=== PATIENT | male | born 1965 | race Caucasian/White ===

== ENCOUNTER 2023-06-30 09:04 | Outpatient (OUT) | payer OTHER, SELFPAY ==
--- NOTE | 2023-06-30 08:45 | NM_ITS ---
Patient Name: KAHLIL MOODY MR#: [id number] : 1965 Exam Date: 06/30/2023 Ordering Doctor: DR Nemesio Angelo . RADIOLOGY REPORT PROCEDURE: NM SKYLER PERF SPECT REST STR COMPARISON: None. INDICATIONS: CHEST PAIN TECHNIQUE: Exam Description: Rest/Stress two day protocol gated SPECT Rest Imagin.1 mCi Tc-99m Cardiolite IV on 06-30-2023 Stress Imaging 25.3 mCi Tc-99m Cardiolite IV on 07-30-2023 Exercise Protocol: 0.4 mg Lexiscan given IV Heart Rate (bpm): Rest: 72 Max: 153 PMHR: 93 Blood Pressure: Rest: 140/98 Max: 198/98 Exercise Time: Minutes: 8 Seconds: 56 Stage Reached: Stage: 3 Mets 10.1 Symptoms: Rest and peak stress ECG findings were normal and the exercise portion of the study was normal per attending physician Dr. Burgos . For more details please see separate cardiac stress test report. FINDINGS: QUALITY OF STUDY: Excellent. PERFUSION DEFECT: None. LOCATION: N/A SIZE: N/A. SEVERITY: N/A. TYPE: N/A. WALL MOTION: Normal. LV SIZE: Normal. 119 mL. TID / TCD: None; 0.9 LVEF: Normal. Calculated EF 64%. SUMMARY: Myocardial perfusion imaging study is NORMAL. CONCLUSION: 1. Normal nuclear medicine myocardial perfusion scan. Dictated by: Aki Barba M.D. on 07/30/2023 at 14:39 Approved by: Aki Barba M.D. on 07/30/2023 at 14:41
== END 2023-06-30 09:05 | disposition home or self-care (01) ==
LOC: NM 09:04
PROVIDERS: PCP Family Medicine; Visit Provider Family Medicine
DX: I11.0 Hypertensive heart disease with heart failure (principal); I50.30 Unspecified diastolic (congestive) heart failure; R07.9 Chest pain, unspecified
CPT/HCPCS: 36415; 71046; 78452; 80053; 83880; 85025; A9500

== ENCOUNTER 2023-06-30 09:14 | Outpatient (OUT) | payer OTHER, SELFPAY ==
[2023-06-30 09:36] LABS: Basophils Absolute Auto 0.1 10^3/uL (0.0-0.1); Basophils Percent Auto 0.9 % (0.2-2.0); Eosinophils Absolute Auto 0.2 10^3/uL (0.0-0.7); Eosinophils Percent Auto 2.6 % (0.9-7.0); Hematocrit 44.2 % (42.0-54.0); Hemoglobin 14.5 g/dL (14.0-18.0); Immature Granulocytes Abs Auto 0.02 10^3/uL (0.00-0.03); Immature Granulocytes Pct Auto 0.3 % (0.0-0.5); Lymphocytes Absolute Auto 1.8 10^3/uL (1.2-3.8); Lymphocytes Percent Auto 31.3 % (20.5-60.0); Mean Corpuscular HGB Conc 32.8 g/dL (29.9-35.2); Mean Corpuscular Hemoglobin 29.8 pg (25.9-34.0); Mean Corpuscular Volume 90.9 fL (80.0-94.0); Mean Platelet Volume 10.9 fL (9.5-13.5); Monocytes Absolute Auto 0.5 10^3/uL (0.3-0.8); Monocytes Percent Auto 7.7 % (1.7-12.0); Neutrophils Absolute Auto 3.4 10^3/uL (1.4-6.5); Neutrophils Percent Auto 57.2 % (43.0-75.0); Platelet Count 146 10^3/uL (150-450); Red Blood Count 4.86 10^6/uL (4.70-6.10); Red Cell Distribution Width 13.2 % (11.0-15.0); White Blood Count 5.9 10^3/uL (4.0-11.0)
--- NOTE | 2023-06-30 09:36 | XR_ITS ---
The [address] [address] Patient Name: KAHLIL MOODY MRN: [id number] date: 1965 Sex: M Assigned Patient Location: LAB Current Patient Location: LAB Accession/Order Number: [id number] Exam Date: 06/30/2023 09:40 Report Date: 06/30/2023 09:56 At the request of: JOE FOOTE Procedure: XR chest 2V EXAM: XR chest 2V HISTORY: Chest pain R07.9 COMPARISON: None. TECHNIQUE: PA and lateral views of the chest. FINDINGS: The cardiomediastinal silhouette is normal. No focal consolidation is identified. There is no pneumothorax. No pleural effusion is noted. The osseous structures are intact. XR/XR chest 2V IMPRESSION: No acute cardiopulmonary process. Electronically authenticated by: ASHLYN CAMPOS Date: 06/30/2023 09:56
[2023-06-30 10:39] LABS: Alanine Aminotransferase 43 U/L (16-63); Albumin Globulin Ratio 1.1; Albumin Level 3.8 g/dL (3.4-5.0); Alkaline Phosphatase 58 U/L (46-116); Anion Gap 13.5; Aspartate Amino Transferase 20 U/L (15-37); BUN Creatinine Ratio 19.7; Bilirubin Total 0.4 mg/dL (0.2-1.0); Calcium 8.4 mg/dL (8.5-10.1); Carbon Dioxide 27.7 mmol/L (21.0-32.0); Chloride 106 mmol/L (98-107); Estimated GFR (African America >60 (>=60); Estimated GFR (Non-African Ame >60 (>=60); Globulin 3.6 g/dL; Glucose 115 mg/dL (74-106); Potassium 4.2 mmol/L (3.5-5.1); Sodium 143 mmol/L (136-145); Total Protein 7.4 g/dL (6.4-8.2)
== END 2023-06-30 09:15 | disposition home or self-care (01) ==
LOC: LAB 09:18
PROVIDERS: PCP Family Medicine; Visit Provider Family Medicine
DX: I11.0 Hypertensive heart disease with heart failure (principal); I50.30 Unspecified diastolic (congestive) heart failure; R07.9 Chest pain, unspecified
CPT/HCPCS: 36415; 71046; 80053; 83880; 85025

== ENCOUNTER 2023-07-30 08:42 | Outpatient (OUT) | payer OTHER, SELFPAY ==
--- OUTSIDE RECORDS SUMMARY | 2023-07-30 09:03 | XMS_ITS | CCD ---
Author Name Unknown Address [address] [place] [address] Organization [facility] Care Team Providers Care Sling Operator Name Role Phone DARY ., DR DIAZ Admitting Unavailable HOY ., DR DIAZ Attending Unavailable HOY ., DR DIAZ Consulting Unavailable HOY ., DR DIAZ Admitting Unavailable HOY ., DR DIAZ Attending Unavailable HOY ., DR DIAZ Primary Care Unavailable HOY ., DR DIAZ Consulting Unavailable LE, ASHLYN Consulting Unavailable Problems Problem Classification Problem Date Documented Da te Episodic/Chronic Acute bronchitis (4 sources) Acute bronchitis, unspecified; Translations: [ACUTE BRONCHITIS UNSPECIFIED] Onset: 09-04-2022 Episodic Diabetes mellitus without complication (4 sources) Type 2 diabetes mellitus without complications; Translations: [TYPE 2 DM WITHOUT COMPLICATIONS] Onset: 06-27-2022 Chronic Disorders of lipid metabolism (1 source) Hyperlipidemia, unspecified; Translations: [HYPERLIPIDEMIA UNSPECIFIED] Onset: 07-03-2022 Chronic Essential hypertension (1 source) Essential (primary) hypertension; Translations: [ESSENTIAL PRIMARY HYPERTENSION] Onset: 07-03-2022 Chronic Malaise and fatigue (1 source) Other fatigue; Translations: [OTHER FATIGUE] Onset: 07-03-2022 Episodic Nutritional deficiencies (1 source) Vitamin D deficiency, unspecified; Translations: [VITAMIN D DEFICIENCY UNSPECIFIED] Onset: 07-03-2022 Chronic Other screening for suspected conditions (not mental disorders or infectious disease) (2 sources) Encounter for screening for malignant neoplasm of prostate; Translations: [Encounter for screening for malignant neoplasm of rectum] Onset: 07-03-2022 Episodic Results Test Name Value Interpretation Reference Range Facility XR CHEST 2 Von 09-04-2022 XR CHEST 2 V EXAM: XR CHEST 2 V HISTORY: Acute bronchitis COMPARISON: None. TECHNIQUE: AP view of the chest. FINDINGS: The cardiomediastinal silhouette is normal. The lungs are clear. There is no pneumothorax. No pleural effusion is noted. The osseous structures are intact. IMPRESSION: No acute cardiopulmonary process. Electronically authenticated by: ASHLYN ANDRES Date: 2022-09-04 11:46 Normal [facility] CBC AUTO DIFFon 06-27-2022 BASO # 0.1 103/ul Normal 0.0-0.1 [facility] Comment on above: Performed By: #### C BC #### [facility] [address] [place] [address] Dr. Kathy Henderson Basophils/100 WBC (Bld) 1.1 % Normal 0.2-2.0 [facility] Comment on above: Performed By: #### C BC #### [facility] [address] [place] [address] Dr. Kathy Henderson EO # 0.3 103/ul Normal 0.0-0.7 [facility] Comment on above: Performed By: #### C BC #### [facility] [address] [place] [address] Dr. Kathy Henderson Eosinophils/100 WBC (Bld) 5.7 % Normal 0.9-7.0 [facility] Comment on above: Performed By: #### C BC #### [facility] [address] [place] [address] Dr. Kathy Henderson Erythrocyte distribution width (RBC) [Ratio] 13.2 % Normal 11.0-15.0 [facility] Comment on above: Performed By: #### C BC #### [facility] [address] [place] [address] Dr. Kathy Henderson Hematocrit (Bld) [Volume fraction] 48.0 % Normal 42.0-54.0 [facility] Comment on above: Performed By: #### C BC #### [facility] [address] [place] [address] Dr. Kathy Henderson Hemoglobin (Bld) [Mass/Vol] 15.5 g/dL Normal 14.0-18.0 [facility] Comment on above: Performed By: #### C BC #### [facility] [address] [place] [address] Dr. Kathy Henderson IG # 0.01 10e3/ul Normal 0.00-0.03 [facility] Comment on above: Performed By: #### C BC #### [facility] [address] [place] [address] Dr. Kathy Henderson IG % 0.2 % Normal 0.0-0.5 [facility] Comment on above: Performed By: #### C BC #### [facility] [address] [place] [address] Dr. Kathy Henderson LYMPH # 1.7 103/ul Normal 1.2-3.8 [facility] Comment on above: Performed By: #### C BC #### [facility] [address] [place] [address] Dr. Kathy Henderson Lymphocytes/100 WBC (Bld) 31.8 % Normal 20.5-60.0 [facility] Comment on above: Performed By: #### C BC #### [facility] [address] [place] [address] Dr. Kathy Henderson MANUAL DIFF REQ NO Normal [facility] Comment on above: Performed By: #### C BC #### [facility] [address] [place] [address] Dr. Kathy Henderson MCH (RBC) [Entitic mass] 30.0 pg Normal 25.9-34.0 [facility] Comment on above: Performed By: #### C BC #### [facility] [address] [place] [address] Dr. Kathy Henderson MCHC (RBC) [Mass/Vol] 32.3 g/dL Normal 29.9-35.2 [facility] Comment on above: Performed By: #### C BC #### [facility] [address] [place] [address] Dr. Kathy Henderson MCV (RBC) [Entitic vol] 92.8 fL Normal 80.0-94.0 [facility] Comment on above: Performed By: #### C BC #### [facility] [address] [place] [address] Dr. Kathy Henderson MONO # 0.3 103/ul Normal 0.3-0.8 [facility] Comment on above: Performed By: #### C BC #### [facility] [address] [address] [address] Kathy Henderson Monocytes/100 WBC (Bld) 5.5 % Normal 1.7-12.0 [facility] Comment on above: Performed By: #### C BC #### [facility] [address] [place] [address] Dr. Kathy Henderson NEUT # 3.0 103/ul Normal 1.4-6.5 [facility] Comment on above: Performed By: #### C BC #### [facility] [address] [place] [address] Dr. Kathy Henderson Neutrophils/100 WBC (Bld) 55.7 % Normal 43.0-75.0 [facility] Comment on above: Performed By: #### C BC #### [facility] [address] [place] [address] Dr. Kathy Henderson Platelet mean volume (Bld) [Entitic vol] 11.1 fL Normal 9.5-13.5 [facility] Comment on above: Performed By: #### C BC #### [facility] [address] [place] [address] Dr. Kathy Henderson PLT 154 103/ul Normal 150-450 [facility] Comment on above: Performed By: #### C BC #### [facility] [address] [place] [address] Dr. Kathy Henderson RBC 5.17 106/ul Normal 4.70-6.10 [facility] Comment on above: Performed By: #### C BC #### [facility] [address] [place] [address] Dr. Kathy Henderson WBC 5.4 103/ul Normal 4.0-11.0 [facility] Comment on above: Performed By: #### C BC #### [facility] [address] [place] [address] Dr. Kathy Henderson FREE T3on 06-27-2022 FREE T3 3.07 pg/mlL Normal 2.18-3.98 [facility] Comment on above: Performed By: #### T SH, LIPID, T4, FT3, CMP #### [facility] [address] [place] [address] Dr. Kathy Henderson GLYCOHEMOGLOBIN A1Con 2022 ADA RECOMMENDATION SEE BELOW Normal [facility] Comment on above: Result Comment: ADA RECOMMENDED LIMIT 4.0 - 6.0 ADA THERAPEUTIC TARGET < 7.0 ACTION SUGGESTED > 7.0 Performed By: #### A 1C #### [facility] [address] [place] [address] Dr. Kathy Henderson HbA1c (Bld) [Mass fraction] 5.9 % Normal 4.5-6.2 [facility] Comment on above: Performed By: #### A 1C #### [facility] [address] [place] [address] Dr. Kathy Henderson LIPID PROFILEon 06-27-2022 CHOL-HDL RATIO NORM SEE BELOW Normal [facility] Comment on above: Result Comment: 3.3 - 4.4 LOW RISK 4.4 - 7.1 AVERAGE RISK 7.1 - 11.0 MODERATE RISK >11.0 HIGH RISK Performed By: #### T SH, LIPID, T4, FT3, CMP #### [facility] [address] [place] [address] Dr. Kathy Henderson Cholesterol [Mass/Vol] 218 mg/dL Critically high <=200 [facility] Comment on above: Performed By: #### T SH, LIPID, T4, FT3, CMP #### [facility] [address] [place] [address] Dr. Kathy Henderson Cholesterol in HDL [Mass/Vol] 36 mg/dL Critically low 40-60 [facility] Comment on above: Performed By: #### T SH, LIPID, T4, FT3, CMP #### [facility] [address] [place] [address] Dr. Kathy Henderson Cholesterol in LDL [Mass/Vol] 137.8 mg/dL Normal [facility] Comment on above: Performed By: #### T SH, LIPID, T4, FT3, CMP #### [facility] [address] [place] [address] Dr. Kathy Henderson Cholesterol.total/Ch olesterol in HDL [Mass ratio] 6.1 {ratio} Normal [facility] Comment on above: Performed By: #### T SH, LIPID, T4, FT3, CMP #### [facility] [address] [place] [address] Dr. Kathy Henderson HDL NORMAL > or = 60 mg/dl - LO W CARDIOVASCULAR RISK <40 mg/dl - HIGH CARDIOVASCULAR RISK Normal [facility] Comment on above: Performed By: #### T SH, LIPID, T4, FT3, CMP #### [facility] [address] [address] [address] Kathy Henderson LDL CALC NORMAL SEE BELOW Normal [facility] Comment on above: Result Comment: <100 mg/dl OPTIMAL 100 - 129 mg/dl NEAR OR ABOVE OPTIMAL 130 - 159 mg/dl BORDERLINE HIGH 160 - 189 mg/dl HIGH >190 mg/dl VERY HIGH Performed By: #### T SH, LIPID, T4, FT3, CMP #### [facility] [address] [address] [address] Kathy Henderson Triglyceride [Mass/Vol] 221 mg/dL Critically high <=150 [facility] Comment on above: Performed By: #### T SH, LIPID, T4, FT3, CMP #### [facility] [address] [place] [address] Dr. Kathy Henderson VLDL CALC 44.2 mg/dL Normal [facility] Comment on above: Performed By: #### T SH, LIPID, T4, FT3, CMP #### [facility] [address] [address] [address] Kathy Henderson PROF 14(COMP METB)on 023 Albumin [Mass/Vol] 4.3 g/dL Normal 3.4-5.0 [facility] Comment on above: Performed By: #### T SH, LIPID, T4, FT3, CMP #### [facility] [address] [place] [address] Dr. Kathy Henderson Albumin/Globulin [Mass ratio] 1.0 {ratio} Normal [facility] Comment on above: Performed By: #### T SH, LIPID, T4, FT3, CMP #### [facility] [address] [place] [address] Dr. Kathy Henderson ALP [Catalytic activity/Vol] 66 U/L Normal 46-116 [facility] Comment on above: Performed By: #### T SH, LIPID, T4, FT3, CMP #### [facility] [address] [place] [address] Dr. Kathy Henderson ALT [Catalytic activity/Vol] 44 U/L Normal 16-63 [facility] Comment on above: Performed By: #### T SH, LIPID, T4, FT3, CMP #### [facility] [address] [place] [address] Dr. Kathy Henderson Anion gap [Moles/Vol] 13.8 mmol/L Normal [facility] Comment on above: Performed By: #### T SH, LIPID, T4, FT3, CMP #### [facility] [address] [place] [address] Dr. Kathy Henderson AST [Catalytic activity/Vol] 23 U/L Normal 15-37 [facility] Comment on above: Performed By: #### T SH, LIPID, T4, FT3, CMP #### [facility] [address] [place] [address] Dr. Kathy Henderson Bilirubin [Mass/Vol] 0.5 mg/dL Normal 0.2-1.0 [facility] Comment on above: Performed By: #### T SH, LIPID, T4, FT3, CMP #### [facility] [address] [place] [address] Dr. Kathy Henderson Calcium [Mass/Vol] 8.8 mg/dL Normal 8.5-10.1 [facility] Comment on above: Performed By: #### T SH, LIPID, T4, FT3, CMP #### [facility] [address] [place] [address] Dr. Kathy Henderson Chloride [Moles/Vol] 101 mmol/L Normal 98-107 [facility] Comment on above: Performed By: #### T SH, LIPID, T4, FT3, CMP #### [facility] [address] [address] [address] Kathy Henderson CO2 [Moles/Vol] 29.5 mmol/L Normal 21.0-32.0 [facility] Comment on above: Performed By: #### T SH, LIPID, T4, FT3, CMP #### [facility] [address] [place] [address] Dr. Kathy Henderson Creatinine [Mass/Vol] 1.15 mg/dL Normal 0.70-1.30 [facility] Comment on above: Performed By: #### T SH, LIPID, T4, FT3, CMP #### [facility] [address] [place] [address] Dr. Kathy Henderson EGFR-AF VIETNAMESE >60 Normal >=60 [facility] Comment on above: Performed By: #### T SH, LIPID, T4, FT3, CMP #### [facility] [address] [place] [address] Dr. Kathy Henderson EGFR-NON AF VIETNAMESE >60 Normal >=60 [facility] Comment on above: Performed By: #### T SH, LIPID, T4, FT3, CMP #### [facility] [address] [place] [address] Dr. Kathy Henderson Globulin (S) [Mass/Vol] 4.3 g/dL Normal [facility] Comment on above: Performed By: #### T SH, LIPID, T4, FT3, CMP #### [facility] [address] [place] [address] Dr. Kathy Henderson Glucose [Mass/Vol] 123 mg/dL Normal [facility] Comment on above: Performed By: #### T SH, LIPID, T4, FT3, CMP #### [facility] [address] [place] [address] Dr. Kathy Henderson Performed By: #### A 1C #### [facility] [address] [place] [address] Dr. Kathy Henderson Potassium [Moles/Vol] 4.3 mmol/L Normal 3.5-5.1 [facility] Comment on above: Performed By: #### T SH, LIPID, T4, FT3, CMP #### [facility] [address] [place] [address] Dr. Kathy Henderson Protein [Mass/Vol] 8.6 g/dL Critically high 6.4-8.2 [facility] Comment on above: Performed By: #### T SH, LIPID, T4, FT3, CMP #### [facility] [address] [place] [address] Dr. Kathy Hednerson Sodium [Moles/Vol] 140 mmol/L Normal 136-145 [facility] Comment on above: Performed By: #### T SH, LIPID, T4, FT3, CMP #### [facility] [address] [place] [address] Dr. Kathy Henderson Urea nitrogen [Mass/Vol] 18.0 mg/dL Normal 7.0-18.0 [facility] Comment on above: Performed By: #### T SH, LIPID, T4, FT3, CMP #### [facility] [address] [place] [address] Dr. Kathy Henderson Urea nitrogen/Creatinine [Mass ratio] 15.7 mg/mg Normal [facility] Comment on above: Performed By: #### T SH, LIPID, T4, FT3, CMP #### [facility] [address] [place] [address] Dr. Kathy Henderson T4on 06-27-2022 T4 [Mass/Vol] 6.00 ug/dL Normal 4.50-12.10 [facility] Comment on above: Performed By: #### T SH, LIPID, T4, FT3, CMP #### [facility] [address] [place] [address] Dr. Kathy Henderson TSHon 06-27-2022 TSH 2.394 uIU/mL Normal 0.358-3.740 [facility] Comment on above: Performed By: #### T SH, LIPID, T4, FT3, CMP #### [facility] [address] [place] [address] Dr. Kathy Henderson VITAMIN D 25 OHon 06-27-2022 VIT D 25-OH 29.1 ng/mL Normal [facility] Comment on above: Performed By: #### V ITJULISA, PSASC #### [facility] [address] [place] [address] [id number] [address] Kathy Henderson VIT D RANGES SEE BELOW Normal [facility] Comment on above: Result Comment: <20 ng/mL Vit D deficient 20 - <30 ng/mL Vit D insufficient 30 - 100 ng/mL Vit D sufficient >100 ng/mL Potential Toxicity Performed By: #### V CYNTHIA, PSASC #### [facility] [id number] Kathy Henderson Encounters Encounter Date Encounter Type Care Provider Facility Start: 09-04-2022 End: 09-05-[address] JOE FOOTE . Facility: Start: 06-27-2022 End: 06-28-[address] JOE FOOTE . Facility: Procedures Date Procedure Procedure Detail Performing Clinician Start: 06-27-[address] IRLANDA FOOTE . Comment on above: Performed By: #### V CYNTHIA PSASC #### [facility] [address] [place] [address] [id number] [address] Kathy Henderson Payers Date Payer Category Payer Unknown [id number] 1965 Unknown [id number] 1957 Unknown [id number] Summary Purpose Family History No Family History Records Found Advance Directives No Advanced Directives Records Found Additional Source Comments (unrecognized sect ion and content) No Status Records Found INFORMATION SOURCE (unrecogn ized section and content) DATE CREATED AUTHOR 09/08/2022 [facility] FOR RECORDS PERTAINING TO PATIENTS WHO ARE OR HAVE BEEN ENROLLED IN A CHEMICAL DEPENDENCY/SUBSTANCEABUSE PROGRAM, SOME INFORMATION MAY BE OMITTED. This clinical summary was aggregated from multiple sources. Caution should be exercised in using it in the provision of clinical care. This summary normalizes information from multiple sources, and as a consequence, information in this document may materially change the coding, format and clinical context of patient data. In addition, data may be omitted in some cases. CLINICAL DECISIONS SHOULD BE BASED ON THE PRIMARY CLINICAL RECORDS. [facility], [facility]. provides no warranty or guarantee of the accuracy or completeness of information in this document.
--- NOTE | 2023-07-30 12:54 | PM.STRESS ---
Stress Test Stress Test Requesting physician: Nemesio Angelo Procedure: Exercise Cardiolite stress test General Information: Reason for Stress Test: Chest pain Cardiac History and Risk Factors: Denies any Resting 12 - Lead Electrocardiogram: Rate & rhythm: Normal sinus at a rate of 70. [place]: Normal T-waves: Inverted in III ST-segments: Normal Stress Test: Protocol: Trell protocol was followed, with injection of Cardiolite once target heart rate was achieved. Exercise capacity: Good exercise capacity. Total exercise time of 8 minutes 57 seconds reached Trell stage 3 at 3.4MPH, 14% grade, & 10.1 METs. Blood pressure: Initial: 140/98, Maximum: 198/98, Recovery: 146/88 Rate & rhythm: Patient remained in sinus rhythm during the exercise and recovery portions of the study.? The maximum heart rate was 153, which was 93% of the maximum predicted heart rate 164. ST-segments & T-waves: There were no T-wave changes and no ST-segment changes when compared to the baseline EKG. Patient response/symptoms: There were no symptoms similar to the chief complaint. Interpretation: Normal exercise stress test component without electrocardiographical evidence of ischemia. Asymptomatic of chief complaint. Cardiolite imaging interpretation will be reported separately. Clinical correlation required.?
== END 2023-07-30 08:43 | disposition home or self-care (01) ==
PROVIDERS: PCP Family Medicine; Visit Provider Family Medicine
DX: R07.9 Chest pain, unspecified (principal)
CPT/HCPCS: 93017

== ENCOUNTER 2023-11-05 08:34 | Outpatient (OUT) | payer OTHER, SELFPAY ==
--- OUTSIDE RECORDS SUMMARY | 2023-11-05 08:54 | XMS_ITS | CCD ---
Author Organization 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 Electronically authenticated by: ASHLYN CAMPOS Date: 2022-09-04 11:46 Normal [facility] CBC AUTO DIFFon 06-27-2022 BASO # 0.1 103/ul Normal 0.0-0.1 [facility] Comment on above: Performed By: #### C BC #### [facility] [address] [address] [address] Kathy Henderson Basophils/100 WBC (Bld) 1.1 % Normal 0.2-2.0 [facility] Comment on above: Performed By: #### C BC #### [facility] [address] [address] [address] Kathy Henderson EO # 0.3 103/ul Normal 0.0-0.7 [facility] Comment on above: Performed By: #### C BC #### [facility] [address] [address] [address] Kathy Henderson Eosinophils/100 WBC (Bld) 5.7 % Normal 0.9-7.0 [facility] Comment on above: Performed By: #### C BC #### [facility] [address] [address] [address] Kathy Henderson Erythrocyte distribution width (RBC) [Ratio] 13.2 % Normal 11.0-15.0 [facility] Comment on above: Performed By: #### C BC #### [facility] [address] [address] [address] Kathy Henderson Hematocrit (Bld) [Volume fraction] 48.0 % Normal 42.0-54.0 [facility] Comment on above: Performed By: #### C BC #### [facility] [address] [address] [address] Kathy Henderson Hemoglobin (Bld) [Mass/Vol] 15.5 g/dL Normal 14.0-18.0 [facility] Comment on above: Performed By: #### C BC #### [facility] [address] [address] [address] Kathy Henderson IG # 0.01 10e3/ul Normal 0.00-0.03 [facility] Comment on above: Performed By: #### C BC #### [facility] [address] [place] [address] Dr. Kathy Henderson IG % 0.2 % Normal 0.0-0.5 [facility] Comment on above: Performed By: #### C BC #### [facility] [address] [place] [address] Dr. Kathy Henderson LYMPH # 1.7 103/ul Normal 1.2-3.8 [facility] Comment on above: Performed By: #### C BC #### [facility] [address] [place] [address] Dr. Kathy Henderson Lymphocytes/100 WBC (Bld) 31.8 % Normal 20.5-60.0 [facility] Comment on above: Performed By: #### C BC #### [facility] [address] [place] [address] Dr. Kathy Henderson MANUAL DIFF REQ NO Normal [facility] Comment on above: Performed By: #### C BC #### [facility] [address] [place] [address] Dr. Kathy Henderson MCH (RBC) [Entitic mass] 30.0 pg Normal 25.9-34.0 [facility] Comment on above: Performed By: #### C BC #### [facility] [address] [place] [address] Dr. Kathy Henderson MCHC (RBC) [Mass/Vol] 32.3 g/dL Normal 29.9-35.2 [facility] Comment on above: Performed By: #### C BC #### [facility] [address] [place] [address] Dr. Kathy Henderson MCV (RBC) [Entitic vol] 92.8 fL Normal 80.0-94.0 [facility] Comment on above: Performed By: #### C BC #### [facility] [address] [place] [address] Dr. Kathy Henderson MONO # 0.3 103/ul Normal 0.3-0.8 [facility] Comment on above: Performed By: #### C BC #### [facility] [address] [place] [address] Dr. Kathy Henderson Monocytes/100 WBC (Bld) 5.5 % Normal 1.7-12.0 [facility] Comment on above: Performed By: #### C BC #### [facility] [address] [place] [address] Dr. Kathy Hendreson NEUT # 3.0 103/ul Normal 1.4-6.5 [facility] Comment on above: Performed By: #### C BC #### [facility] [address] [place] [address] Dr. Kathy Henderson Neutrophils/100 WBC (Bld) 55.7 % Normal 43.0-75.0 [facility] Comment on above: Performed By: #### C BC #### [facility] [address] [place] [address] Dr. Kathy Henderson Platelet mean volume (Bld) [Entitic vol] 11.1 fL Normal 9.5-13.5 [facility] Comment on above: Performed By: #### C BC #### [facility] [address] [place] [address] Dr. Kathy Henderson PLT 154 103/ul Normal 150-450 [facility] Comment on above: Performed By: #### C BC #### [facility] [address] [place] [address] Dr. Kathy Henderson RBC 5.17 106/ul Normal 4.70-6.10 [facility] Comment on above: Performed By: #### C BC #### [facility] [address] [place] [address] Dr. Kathy Henderson WBC 5.4 103/ul Normal 4.0-11.0 [facility] Comment on above: Performed By: #### C BC #### [facility] [address] [place] [address] Dr. Kathy Henderson FREE T3on 06-27-2022 FREE T3 3.07 pg/mlL Normal 2.18-3.98 [facility] Comment on above: Performed By: #### T SH, LIPID, T4, FT3, CMP #### [facility] [address] [address] [address] Kathy Henderson GLYCOHEMOGLOBIN A1Con 2022 ADA RECOMMENDATION SEE BELOW Normal [facility] Comment on above: Result Comment: ADA RECOMMENDED LIMIT 4.0 - 6.0 ADA THERAPEUTIC TARGET < 7.0 ACTION SUGGESTED > 7.0 Performed By: #### A 1C #### [facility] [address] [address] [address] Kathy Henderson HbA1c (Bld) [Mass fraction] 5.9 % Normal 4.5-6.2 [facility] Comment on above: Performed By: #### A 1C #### [facility] [address] [place] [address] Dr. Kathy Henderson LIPID PROFILEon 06-27-2022 CHOL-HDL RATIO NORM SEE BELOW Normal [facility] [place] Comment on above: Result Comment: 3.3 - 4.4 LOW RISK 4.4 - 7.1 AVERAGE RISK 7.1 - 11.0 MODERATE RISK >11.0 HIGH RISK Performed By: #### T SH, LIPID, T4, FT3, CMP #### [facility] [address] [place] [address] Dr. Kathy Henderson Cholesterol [Mass/Vol] 218 mg/dL Critically high <=200 [facility] Comment on above: Performed By: #### T SH, LIPID, T4, FT3, CMP #### [facility] [address] [place] [address] Dr. Kathy Henderson Cholesterol in HDL [Mass/Vol] 36 mg/dL Critically low 40-60 [facility] Comment on above: Performed By: #### T SH, LIPID, T4, FT3, CMP #### [facility] [address] [address] [address] Kathy Henderson Cholesterol in LDL [Mass/Vol] 137.8 mg/dL Normal [facility] Comment on above: Performed By: #### T SH, LIPID, T4, FT3, CMP #### [facility] [address] [place] [address] Dr. Kathy Henderson Cholesterol.total/Ch olesterol in HDL [Mass ratio] 6.1 {ratio} Normal [facility] Comment on above: Performed By: #### T SH, LIPID, T4, FT3, CMP #### [facility] [address] [place] [address] Dr. Kathy Henderson HDL NORMAL > or = 60 mg/dl - LO W CARDIOVASCULAR RISK <40 mg/dl - HIGH CARDIOVASCULAR RISK Normal [facility] Comment on above: Performed By: #### T SH, LIPID, T4, FT3, CMP #### [facility] [address] [place] [address] Dr. Kathy Henderson LDL CALC NORMAL SEE BELOW Normal [facility] Comment on above: Result Comment: <100 mg/dl OPTIMAL 100 - 129 mg/dl NEAR OR ABOVE OPTIMAL 130 - 159 mg/dl BORDERLINE HIGH 160 - 189 mg/dl HIGH >190 mg/dl VERY HIGH Performed By: #### T SH, LIPID, T4, FT3, CMP #### [facility] [address] [place] [address] Dr. Kathy Henderson Triglyceride [Mass/Vol] 221 mg/dL Critically high <=150 [facility] Comment on above: Performed By: #### T SH, LIPID, T4, FT3, CMP #### [facility] [address] [place] [address] Dr. Kathy Henderson VLDL CALC 44.2 mg/dL Normal [facility] Comment on above: Performed By: #### T SH, LIPID, T4, FT3, CMP #### [facility] [address] [place] [address] Dr. Kathy Henderson PROF 14(COMP METB)on 023 Albumin [Mass/Vol] 4.3 g/dL Normal 3.4-5.0 [facility] Comment on above: Performed By: #### T SH, LIPID, T4, FT3, CMP #### [facility] [address] [place] [address] Dr. Kathy Henderson Albumin/Globulin [Mass ratio] 1.0 {ratio} Normal [facility] Comment on above: Performed By: #### T SH, LIPID, T4, FT3, CMP #### [facility] [address] [address] [address] Kathy Henderson ALP [Catalytic activity/Vol] 66 U/L Normal 46-116 [facility] Comment on above: Performed By: #### T SH, LIPID, T4, FT3, CMP #### [facility] [address] [place] [address] Dr. Kathy Henderson ALT [Catalytic activity/Vol] 44 U/L Normal 16-63 [facility] Comment on above: Performed By: #### T SH, LIPID, T4, FT3, CMP #### [facility] [address] [place] [address] Dr. Kathy Henderson Anion gap [Moles/Vol] 13.8 mmol/L Normal [facility] Comment on above: Performed By: #### T SH, LIPID, T4, FT3, CMP #### [facility] [address] [place] [address] Dr. Kathy Henderson AST [Catalytic activity/Vol] 23 U/L Normal 15-37 [facility] Comment on above: Performed By: #### T SH, LIPID, T4, FT3, CMP #### [facility] [address] [place] [address] Dr. Kathy Henderson Bilirubin [Mass/Vol] 0.5 mg/dL Normal 0.2-1.0 [facility] Comment on above: Performed By: #### T SH, LIPID, T4, FT3, CMP #### [facility] [address] [place] [address] Dr. Kathy Henderson Calcium [Mass/Vol] 8.8 mg/dL Normal 8.5-10.1 [facility] Comment on above: Performed By: #### T SH, LIPID, T4, FT3, CMP #### [facility] [address] [place] [address] Dr. Kathy Henderson Chloride [Moles/Vol] 101 mmol/L Normal 98-107 [facility] Comment on above: Performed By: #### T SH, LIPID, T4, FT3, CMP #### [facility] [address] [place] [address] Dr. Kathy Henderson CO2 [Moles/Vol] 29.5 mmol/L Normal 21.0-32.0 [facility] Comment on above: Performed By: #### T SH, LIPID, T4, FT3, CMP #### [facility] [address] [place] [address] Dr. Kathy Henderson Creatinine [Mass/Vol] 1.15 mg/dL Normal 0.70-1.30 [facility] Comment on above: Performed By: #### T SH, LIPID, T4, FT3, CMP #### [facility] [address] [place] [address] Dr. Kathy Henderson EGFR-AF MALAGASY >60 Normal >=60 [facility] Comment on above: Performed By: #### T SH, LIPID, T4, FT3, CMP #### [facility] [address] [place] [address] Dr. Kathy Henderson EGFR-NON AF MALAGASY >60 Normal >=60 [facility] Comment on above: Performed By: #### T SH, LIPID, T4, FT3, CMP #### [facility] [address] [place] [address] Dr. Kathy Henderson Globulin (S) [Mass/Vol] 4.3 g/dL Normal [facility] Comment on above: Performed By: #### T SH, LIPID, T4, FT3, CMP #### [facility] [address] [place] [address] Dr. Kathy Henderson Glucose [Mass/Vol] 123 mg/dL Normal [facility] Comment on above: Performed By: #### T SH, LIPID, T4, FT3, CMP #### [facility] [address] [place] [address] Dr. Kathy Henderson Performed By: #### A 1C #### [facility] [address] [place] [address] Dr. Kathy Henderson Potassium [Moles/Vol] 4.3 mmol/L Normal 3.5-5.1 [facility] Comment on above: Performed By: #### T SH, LIPID, T4, FT3, CMP #### [facility] [address] [place] [address] Dr. Kathy Henderson Protein [Mass/Vol] 8.6 g/dL Critically high 6.4-8.2 [facility] Comment on above: Performed By: #### T SH, LIPID, T4, FT3, CMP #### [facility] [address] [place] [address] Dr. Kathy Henderson Sodium [Moles/Vol] 140 mmol/L Normal 136-145 [facility] Comment on above: Performed By: #### T SH, LIPID, T4, FT3, CMP #### [facility] [address] [place] [address] Dr. Kathy Henderson Urea nitrogen [Mass/Vol] 18.0 mg/dL Normal 7.0-18.0 [facility] Comment on above: Performed By: #### T SH, LIPID, T4, FT3, CMP #### [facility] [address] [place] [address] Dr. Kathy Henderson Urea nitrogen/Creatinine [Mass ratio] 15.7 mg/mg Normal [facility] Comment on above: Performed By: #### T SH, LIPID, T4, FT3, CMP #### [facility] [address] [place] [address] Dr. Kathy Henderson T4on 06-27-2022 T4 [Mass/Vol] 6.00 ug/dL Normal 4.50-12.10 [facility] Comment on above: Performed By: #### T SH, LIPID, T4, FT3, CMP #### [facility] [address] [place] [address] Dr. Kathy Henderson TSHon 06-27-2022 TSH 2.394 uIU/mL Normal 0.358-3.740 [facility] Comment on above: Performed By: #### T SH, LIPID, T4, FT3, CMP #### [facility] [address] [place] [address] Dr. Kathy Henderson VITAMIN D 25 OHon 06-27-2022 VIT D 25-OH 29.1 ng/mL Normal [facility] Comment on above: Performed By: #### V ITJULISA, PSASC #### [facility] [address], [place] [address] Dr. Kathy Henderson VIT D RANGES SEE BELOW Normal [facility] Comment on above: Result Comment: <20 ng/mL Vit D deficient 20 - <30 ng/mL Vit D insufficient 30 - 100 ng/mL Vit D sufficient >100 ng/mL Potential Toxicity Performed By: #### V ITAD, PSASC #### [facility] [address], [place] [address] Dr. Kathy Henderson Encounters Encounter Date Encounter Type Care Provider Facility Start: 09-04-2022 End: 09-05-[address] JOE FOOTE . Facility: Start: 06-27-2022 End: 06-28-[address] JOE FOOTE . Facility: Procedures Date Procedure Procedure Detail Performing Clinician Start: 06-27-[address] IRLANDA FOOTE . Comment on above: Performed By: #### V ITAD, PSASC #### [facility] [address] [address] [address] Kathy Henderson Payers Date Payer Category Payer Unknown [id number] 1965 Unknown [id number] 1957 Unknown [id number] Summary Purpose Family History No Family History Records Found Advance Directives No Advanced Directives Records Found Additional Source Comments (unrecognized sect ion and content) No Status Records Found INFORMATION SOURCE (unrecogn ized section and content) DATE CREATED AUTHOR 09/08/2022 The [facility] FOR RECORDS PERTAINING TO PATIENTS WHO ARE [...] BE BASED ON THE PRIMARY CLINICAL RECORDS. [facility]. provides no warranty or guarantee of the accuracy or completeness of information in this document.
[2023-11-05 09:11] LABS: Estimated Average Glucose 126 mg/dL
[2023-11-05 10:25] LABS: Basophils Percent Auto 0.7 % (0.2-2.0); Eosinophils Absolute Auto 0.1 10^3/uL (0.0-0.7); Eosinophils Percent Auto 1.8 % (0.9-7.0); Hematocrit 42.3 % (42.0-54.0); Hemoglobin 14.4 g/dL (14.0-18.0); Immature Granulocytes Abs Auto 0.02 10^3/uL (0.00-0.03); Immature Granulocytes Pct Auto 0.3 % (0.0-0.5); Lymphocytes Percent Auto 32.5 % (20.5-60.0); Mean Corpuscular Hemoglobin 30.3 pg (25.9-34.0); Mean Corpuscular Volume 89.1 fL (80.0-94.0); Mean Platelet Volume 10.8 fL (9.5-13.5); Monocytes Absolute Auto 0.4 10^3/uL (0.3-0.8); Monocytes Percent Auto 6.9 % (1.7-12.0); Neutrophils Absolute Auto 3.5 10^3/uL (1.4-6.5); Neutrophils Percent Auto 57.8 % (43.0-75.0); Platelet Count 201 10^3/uL (150-450); Red Blood Count 4.75 10^6/uL (4.70-6.10); Red Cell Distribution Width 12.9 % (11.0-15.0); White Blood Count 6.1 10^3/uL (4.0-11.0)
[2023-11-05 11:04] LABS: Alanine Aminotransferase 45 U/L (16-63); Albumin Globulin Ratio 1.2; Albumin Level 4.1 g/dL (3.4-5.0); Alkaline Phosphatase 64 U/L (46-116); Anion Gap 14.7; Aspartate Amino Transferase 21 U/L (15-37); Bilirubin Total 0.5 mg/dL (0.2-1.0); Calcium 9.3 mg/dL (8.5-10.1); Carbon Dioxide 26.6 mmol/L (21.0-32.0); Chloride 101 mmol/L (98-107); Cholesterol 185 mg/dL (<=200); Estimated GFR (African America >60 (>=60); Estimated GFR (Non-African Ame >60 (>=60); Free T3 3.21 pg/mL (2.18-3.98); Globulin 3.5 g/dL; Glucose 93 mg/dL (74-106); HDL Cholesterol 31 mg/dL (40-60); Potassium 4.3 mmol/L (3.5-5.1); Sodium 138 mmol/L (136-145); Thyroid Stimulating Hormone 2.757 uIU/mL (0.358-3.740); Total Protein 7.6 g/dL (6.4-8.2); Triglycerides 251 mg/dL (<=150); VLDL CHOLESTEROL 50.2 mg/dL
[2023-11-05 11:18] LABS: Prostate Specific Antigen Scrn 0.91 ng/mL (<=4.00)
== END 2023-11-05 08:35 | disposition home or self-care (01) ==
LOC: LAB 08:34
PROVIDERS: PCP Family Medicine; Visit Provider Family Medicine
DX: Z00.00 Encounter for general adult medical examination without abnormal findings (principal)
CPT/HCPCS: 36415; 80053; 80061; 83036; 84436; 84443; 84481; 85025; G0103

== ENCOUNTER 2024-08-04 16:16 | Observation (INO) | payer OTHER, SELFPAY ==
[2024-08-04] VITALS (15 sets, daily range): BP systolic 141–157; BP diastolic 72–92; PULSE 64–90; TEMP 36.4–36.6; O2SAT 92–100; BMI 37.7; BMI 36.6
--- NOTE | 2024-08-04 16:19 | ECG_ITS ---
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
--- NOTE | 2024-08-04 16:26 | ED.DIZZY1 ---
HPI - Dizziness General Chief Complaint: Dizziness Stated Complaint: Dizziness Time Seen by Provider: 08/04/24 16:16 Source: patient Mode of arrival: ambulance Limitations: no limitations History of Present Illness HPI Narrative: 59-year-old male to the emergency department with chief complaint of acute onset of vertigo. He reports he has had episodic vertigo since Friday. Particularly bad this afternoon. He did go see his primary care doctor for this afternoon. He denies a history of vertigo. He reports that he has had some headache, ringing in the ears, diminished hearing for the last week. Today has been the worst day. He has had vomiting associated. He reports a fall afterwards today. He denies any vision changes, numbness, weakness, tingling. He reports that is difficult to walk due to the sensation of movement. Past medical history: Diabetes, obstructive sleep apnea, hypertension Past surgical history: Knee arthroscopy, vasectomy Related Data Home Medications ?Medication ?Instructions ?Recorded ?Confirmed amoxicillin 875 mg-potassium 1 tab PO BID 08/04/24 08/04/24 clavulanate 125 mg tablet meclizine 25 mg tablet 25 mg PO TID 08/04/24 08/04/24 metformin 500 mg tablet 500 mg PO BID 08/04/24 08/04/24 prednisone 20 mg tablet 20 mg PO TID 08/04/24 08/04/24 semaglutide 0.25 mg or 0.5 mg (2 0.5 mg subcut QWEEK 08/04/24 08/04/24 mg/3 mL) subcutaneous pen injector (Ozempic) Allergies Allergy/AdvReac Type Severity Reaction Status Date / Time No Known Drug Allergies Allergy Verified 08/04/24 16:18 Review of Systems ROS Status of ROS 10 or more systems reviewed and unremarkable except as noted in history and below [facility] Medical History (Updated 08/04/24 @ 17:39 by Nikolai Martinez MD) Diabetic acidosis, type II ?E11.10 - Type 2 diabetes mellitus with ketoacidosis without coma (ICD-10) Surgical History (Updated 08/04/24 @ 17:38 by Derick Fields) History of arthroscopic knee surgery ?Z98.890 - Other specified postprocedural states (ICD-10) Social History Little interest or pleasure in doing things: not at all Feeling down, depressed, or hopeless: not at all Exam Narrative Exam Narrative: VITALS: I have reviewed the triage vital signs. GENERAL: Well developed, well appearing adult in no acute distress. NEURO: Alert and oriented x4. Moves all extremities. Face is symmetric and expressive. Cranial nerves II through XII grossly intact as tested. Muscular strength and sensation grossly intact upper and lower extremities bilaterally. No dysarthria. No aphasia. No ataxia. NIHSS 0. EYES: PERRL. Horizontal nystagmus. No vertical nystagmus. No skew. No scleral icterus or conjunctival injection. No discharge. HENT: Normocephalic, atraumatic. Hearing is grossly intact. Nares grossly patent and without discharge. Mucous membranes moist. NECK: No JVD. Patient moves neck without restriction. CARDIO: Rhythm regular. Normal rate. No murmur, rub, or gallop. Pulses equal bilaterally in the upper and lower extremity. No lower extremity edema. PULM: Lungs clear to auscultation in all díaz. No wheezes, rales, or rhonchi. No conversational dyspnea. No splinting, stridor, or accessory muscle use. GI/: Abdomen is soft and non-tender. Normoactive bowel sounds. EXTREMITIES: Symmetric muscle bulk. No joint swelling. No clubbing, cyanosis, or deformity. SKIN: Warm and dry. Normal turgor. No rash or lesions appreciated. PSYCH: Mood, affect, and interaction is appropriate to the setting. Constitutional Vital Signs, click to edit/add: Last Vital Signs Temp 98 F 08/04/24 16:20 Pulse 90 08/04/24 17:31 Resp 23 H 08/04/24 17:31 BP 151/92 H 08/04/24 17:31 Pulse Ox 94 L 08/04/24 17:20 O2 Del Method Room Air 08/04/24 16:43 Course Vital Signs Vital signs: Vital Signs Blood Pressure 157/88 H 08/04/24 16:17 Temperature 98 F 08/04/24 16:20 Pulse Rate 90 08/04/24 17:31 Respiratory Rate 23 H 08/04/24 17:31 Blood Pressure 151/92 H 08/04/24 17:31 Pulse Oximetry 94 L 08/04/24 17:20 Oxygen Delivery Method Room Air 08/04/24 16:43 MDM - Dizziness MDM Narrative Medical decision making narrative: 59-year-old male to the emergency department chief complaint of vertigo. Vital stable, the patient is afebrile. Has a horizontal beating nystagmus. No focal neurologic deficits appreciated exam. Given first episode will obtain CT head, basic labs. Valium is ordered for symptom control. Patient is already taken meclizine prior to arrival. He was given Zofran by EMS as well as fluids. He received IM Decadron injection in the office. Lab work reviewed unremarkable. Nonfasting hyperglycemia in this patient who just received a dose of steroids. CT head: No acute findings CT cervical spine: No acute finding Patient reevaluated. He is now comfortable sitting up in bed and talking. His nystagmus has improved. He is still vertiginous and hesitated to ambulate. No central vertigo S&S. Most likely peripheral cause. Case is discussed with his primary care physician. Dr. Angelo will admit the patient to his service. Lab Data Labs: Lab Results 08/04/24 08/04/24 Range/Units 16:30 16:35 WBC 8.7 (4.0-11.0) 10^3/uL RBC 5.20 (4.70-6.10) 10^6/uL Hgb 15.9 (14.0-18.0) g/dL Hct 45.2 (42.0-54.0) % MCV 86.9 (80.0-94.0) fL MCH 30.6 (25.9-34.0) pg MCHC 35.2 (29.9-35.2) g/dL RDW 12.3 (11.0-15.0) % Plt Count 196 (150-450) 10^3/uL MPV 10.2 (9.5-13.5) fL Seg Neuts % (Manual) 91.0 H (43.0-75.0) Band Neutrophils % 1.0 (0-5) % Lymphocytes % (Manual) 7.0 L (20.5-60.0) % Monocytes % (Manual) 0.0 L (1.7-12.0) % Eosinophils % (Manual) 0.0 L (0.9-7.0) % Basophils % (Manual) 0.0 L (0.2-2.0) % Metamyelocytes % 1.0 Neutrophils # (Manual) 7.91 H (1.4-6.5) 10^3/uL Band Neutrophils # 0.1 (0.0-0.3) 10^3/uL Lymphocytes # (Manual) 0.60 L (1.20-3.80) 10^3/uL Monocytes # (Manual) 0.00 L (0.30-0.80) 10^3/uL Eosinophils # (Manual) 0.00 (0.00-0.70) 10^3/uL Basophils # (Manual) 0.00 (0.00-0.10) 10^3/uL Metamyelocytes # 0.08 Sodium 139 (136-145) mmol/L Potassium 4.8 (3.5-5.1) mmol/L Chloride 102 (98-107) mmol/L Carbon Dioxide 20.3 L (21.0-32.0) mmol/L Anion Gap 21.5 BUN 24.0 H (7.0-18.0) mg/dL Creatinine 1.20 (0.70-1.30) mg/dL Est GFR ( Amer) >60 (>=60 mL/min/1.73m^2) Est GFR (Non-Af Amer) >60 (>=60 mL/min/1.73m^2) BUN/Creatinine Ratio 20.0 Glucose 219 H (74-106) mg/dL Calcium 9.5 (8.5-10.1) mg/dL Troponin I High Sens <4.0 L (4.0-76.1) pg/mL Influenza Type A Ag Negative Influenza Type B Ag Negative SARS-CoV-2 Ag (CV2AG) Negative (NEGATIVE) Discharge Plan Discharge Chief Complaint: Dizziness Clinical Impression: Vertigo Patient Disposition: Admitted as Observation Time of Disposition Decision: 17:39 Condition: Good
[2024-08-04] MEDS: DIAZEPAM 10 MG/2 ML SYRINGE 5 MG IV (16:28)
--- OUTSIDE RECORDS SUMMARY | 2024-08-04 16:32 | XMS_ITS | CCD ---
Author Organization [facility] Care Team Providers Care Business Process Coordinator Name Role Phone DARY ., DR DIAZ [...] ASHLYN CAMPOS Date: 2022-09-04 11:46 Normal [facility] CBC AUTO DIFFon 06-27-2022 BASO # 0.1 103/ul Normal 0.0-0.1 [facility] Comment on above: Performed By: #### C BC #### [facility] [address] [address] [address] Kathy Henderson Basophils/100 WBC (Bld) 1.1 % Normal 0.2-2.0 [facility] Comment on above: Performed By: #### C BC #### [facility] [address] [address] [address] Kathy Henderson EO # 0.3 103/ul Normal 0.0-0.7 [facility] Comment on above: Performed By: #### C BC #### [facility] [address] [address] [address] Kathy Henderson Eosinophils/100 WBC (Bld) 5.7 % Normal 0.9-7.0 [facility] Comment on above: Performed By: #### C BC #### [facility] [address] [address] [address] Kathy Henderson Erythrocyte distribution width (RBC) [Ratio] 13.2 % Normal 11.0-15.0 [facility] Comment on above: Performed By: #### C BC #### [facility] [address] [address] [address] Kathy Henderson Hematocrit (Bld) [Volume fraction] 48.0 % Normal 42.0-54.0 [facility] Comment on above: Performed By: #### C BC #### [facility] [address] [address] [address] Kathy Henderson Hemoglobin (Bld) [Mass/Vol] 15.5 g/dL Normal 14.0-18.0 [facility] Comment on above: Performed By: #### C BC #### [facility] [address] [address] [address] Kathy Henderson IG # 0.01 10e3/ul Normal 0.00-0.03 [facility] Comment on above: Performed By: #### C BC #### [facility] [address] [place] [address] Dr. Kathy Henderson IG % 0.2 % Normal 0.0-0.5 [facility] Comment on above: Performed By: #### C BC #### [facility] [address] [place] [address] Dr. Kathy Henderson LYMPH # 1.7 103/ul Normal 1.2-3.8 [facility] Comment on above: Performed By: #### C BC #### [facility] [address] [place] [address] Dr. Kathy Henderson Lymphocytes/100 WBC (Bld) 31.8 % Normal 20.5-60.0 [facility] Comment on above: Performed By: #### C BC #### [facility] [address] [place] [address] Dr. Kathy Henderson MANUAL DIFF REQ NO Normal [facility] Comment on above: Performed By: #### C BC #### [facility] [address] [place] [address] Dr. Kathy Henderson MCH (RBC) [Entitic mass] 30.0 pg Normal 25.9-34.0 [facility] Comment on above: Performed By: #### C BC #### [facility] [address] [place] [address] Dr. Kathy Henderson MCHC (RBC) [Mass/Vol] 32.3 g/dL Normal 29.9-35.2 [facility] Comment on above: Performed By: #### C BC #### [facility] [address] [place] [address] Dr. Kathy Henderson MCV (RBC) [Entitic vol] 92.8 fL Normal 80.0-94.0 [facility] Comment on above: Performed By: #### C BC #### [facility] [address] [place] [address] Dr. Kathy Henderson MONO # 0.3 103/ul Normal 0.3-0.8 [facility] Comment on above: Performed By: #### C BC #### [facility] [address] [place] [address] Dr. Kathy Henderson Monocytes/100 WBC (Bld) 5.5 % Normal 1.7-12.0 [facility] Comment on above: Performed By: #### C BC #### [facility] [address] [place] [address] Dr. Kathy Henderson NEUT # 3.0 103/ul Normal 1.4-6.5 [facility] Comment on above: Performed By: #### C BC #### [facility] [address] [place] [address] Dr. Kathy Henderson Neutrophils/100 WBC (Bld) 55.7 % Normal 43.0-75.0 [facility] Comment on above: Performed By: #### C BC #### [facility] [address] [place] [address] Dr. Kathy Henderson Platelet mean volume (Bld) [Entitic vol] 11.1 fL Normal 9.5-13.5 [facility] Comment on above: Performed By: #### C BC #### [facility] [address] [place] [address] Dr. Kathy Henderson PLT 154 103/ul Normal 150-450 [facility] Comment on above: Performed By: #### C BC #### [facility] [address] [place] [address] Dr. Kathy Henderson RBC 5.17 106/ul Normal 4.70-6.10 [facility] Comment on above: Performed By: #### C BC #### [facility] [address] [place] [address] Dr. Kathy Henderson WBC 5.4 103/ul Normal 4.0-11.0 [facility] Comment on above: Performed By: #### C BC #### [facility] [address] [place] [address] Dr. Kathy Henderson FREE T3on 06-27-2022 FREE T3 3.07 pg/mlL Normal 2.18-3.98 [facility] Comment on above: Performed By: #### T SH, LIPID, T4, FT3, CMP #### [facility] [address] [address] [address] Kathy Henderson GLYCOHEMOGLOBIN A1Con 2022 ADA RECOMMENDATION SEE BELOW Normal [facility] Comment on above: Result Comment: ADA RECOMMENDED LIMIT 4.0 - 6.0 ADA THERAPEUTIC TARGET < 7.0 ACTION SUGGESTED > 7.0 Performed By: #### A 1C #### [facility] [address] [address] [address] Kathy Henderson HbA1c (Bld) [Mass fraction] 5.9 % Normal 4.5-6.2 [facility] Comment on above: Performed By: #### A 1C #### [facility] [address] [place] [address] Dr. Kathy Henderson LIPID PROFILEon 06-27-2022 CHOL-HDL RATIO NORM SEE BELOW Normal [facility] Comment on above: Result Comment: 3.3 - 4.4 LOW RISK 4.4 - 7.1 AVERAGE RISK 7.1 - 11.0 MODERATE RISK >11.0 HIGH RISK Performed By: #### T SH, LIPID, T4, FT3, CMP #### [facility] [address] [place] [address] Dr. Kathy Henderson Cholesterol [Mass/Vol] 218 mg/dL Critically high <=200 [facility] Comment on above: Performed By: #### T SH, LIPID, T4, FT3, CMP #### [facility] [address] [place] [address] Dr. Kathy Henderson Cholesterol in HDL [Mass/Vol] 36 mg/dL Critically low 40-60 [facility] Comment on above: Performed By: #### T SH, LIPID, T4, FT3, CMP #### [facility] [address] [address] [address] Kathy Henderson Cholesterol in LDL [Mass/Vol] 137.8 mg/dL Normal [facility] Comment on above: Performed By: #### T SH, LIPID, T4, FT3, CMP #### [facility] [address] [place] [address] Dr. Kathy Henderson Cholesterol.total/Ch olesterol in HDL [Mass ratio] 6.1 {ratio} Normal [facility] Comment on above: Performed By: #### T SH, LIPID, T4, FT3, CMP #### [facility] [address] [place] [address] Dr. Kathy Henderson HDL NORMAL > or = 60 mg/dl - LO W CARDIOVASCULAR RISK <40 mg/dl - HIGH CARDIOVASCULAR RISK Normal [facility] Comment on above: Performed By: #### T SH, LIPID, T4, FT3, CMP #### [facility] [address] [place] [address] Dr. Kathy Henderson LDL CALC NORMAL SEE BELOW Normal [facility] Comment on above: Result Comment: <100 mg/dl OPTIMAL 100 - 129 mg/dl NEAR OR ABOVE OPTIMAL 130 - 159 mg/dl BORDERLINE HIGH 160 - 189 mg/dl HIGH >190 mg/dl VERY HIGH Performed By: #### T SH, LIPID, T4, FT3, CMP #### [facility] [address] [place] [address] Dr. Kathy Henderson Triglyceride [Mass/Vol] 221 mg/dL Critically high <=150 [facility] Comment on above: Performed By: #### T SH, LIPID, T4, FT3, CMP #### [facility] [address] [place] [address] Dr. Kathy Henderson VLDL CALC 44.2 mg/dL Normal [facility] Comment on above: Performed By: #### T SH, LIPID, T4, FT3, CMP #### [facility] [address] [place] [address] Dr. Kathy Henderson PROF 14(COMP METB)on 023 Albumin [Mass/Vol] 4.3 g/dL Normal 3.4-5.0 [facility] Comment on above: Performed By: #### T SH, LIPID, T4, FT3, CMP #### [facility] [address] [place] [address] Dr. Kathy Henderson Albumin/Globulin [Mass ratio] 1.0 {ratio} Normal [facility] Comment on above: Performed By: #### T SH, LIPID, T4, FT3, CMP #### [facility] [address] [address] [address] Kathy Henderson ALP [Catalytic activity/Vol] 66 U/L Normal 46-116 [facility] Comment on above: Performed By: #### T SH, LIPID, T4, FT3, CMP #### [facility] [address] [place] [address] Dr. Kathy Henderson ALT [Catalytic activity/Vol] 44 U/L Normal 16-63 [facility] Comment on above: Performed By: #### T SH, LIPID, T4, FT3, CMP #### [facility] [address] [place] [address] Dr. Kathy Henderson Anion gap [Moles/Vol] 13.8 mmol/L Normal [facility] Comment on above: Performed By: #### T SH, LIPID, T4, FT3, CMP #### [facility] [address] [place] [address] Dr. Kathy Henderson AST [Catalytic activity/Vol] 23 U/L Normal 15-37 [facility] Comment on above: Performed By: #### T SH, LIPID, T4, FT3, CMP #### [facility] [address] [place] [address] Dr. Kathy Henderson Bilirubin [Mass/Vol] 0.5 mg/dL Normal 0.2-1.0 [facility] Comment on above: Performed By: #### T SH, LIPID, T4, FT3, CMP #### [facility] [address] [place] [address] Dr. Kathy Henderson Calcium [Mass/Vol] 8.8 mg/dL Normal 8.5-10.1 [facility] Comment on above: Performed By: #### T SH, LIPID, T4, FT3, CMP #### [facility] [address] [place] [address] Dr. Kathy Henderson Chloride [Moles/Vol] 101 mmol/L Normal 98-107 [facility] Comment on above: Performed By: #### T SH, LIPID, T4, FT3, CMP #### [facility] [address] [place] [address] Dr. Kathy Henderson CO2 [Moles/Vol] 29.5 mmol/L Normal 21.0-32.0 [facility] Comment on above: Performed By: #### T SH, LIPID, T4, FT3, CMP #### [facility] [address] [place] [address] Dr. Kathy Henderson Creatinine [Mass/Vol] 1.15 mg/dL Normal 0.70-1.30 [facility] Comment on above: Performed By: #### T SH, LIPID, T4, FT3, CMP #### [facility] [address] [place] [address] Dr. Kathy Henderson EGFR-AF BELGIAN >60 Normal >=60 [facility] Comment on above: Performed By: #### T SH, LIPID, T4, FT3, CMP #### [facility] [address] [place] [address] Dr. Kathy Henderson EGFR-NON AF BELGIAN >60 Normal >=60 [facility] Comment on above: Performed By: #### T SH, LIPID, T4, FT3, CMP #### [facility] [address] [place] [address] Dr. Kathy Henderson Globulin (S) [Mass/Vol] 4.3 g/dL Normal [facility] Comment on above: Performed By: #### T SH, LIPID, T4, FT3, CMP #### [facility] [address] [place] [address] Dr. Kathy Henderson Glucose [Mass/Vol] 123 mg/dL Normal [facility] Comment on above: Performed By: #### T SH, LIPID, T4, FT3, CMP #### [facility] [address] [place] [address] Dr. Kathy Henderson Performed By: #### A 1C #### [facility] [address] [place] [address] Dr. Kathy Henderson Potassium [Moles/Vol] 4.3 mmol/L Normal 3.5-5.1 [facility] Comment on above: Performed By: #### T SH, LIPID, T4, FT3, CMP #### [facility] [address] [place] [address] Dr. Kathy Henderson Protein [Mass/Vol] 8.6 g/dL Critically high 6.4-8.2 [facility] Comment on above: Performed By: #### T SH, LIPID, T4, FT3, CMP #### [facility] [address] [place] [address] Dr. Kathy Henderson Sodium [Moles/Vol] 140 mmol/L Normal 136-145 [facility] Comment on above: Performed By: #### T SH, LIPID, T4, FT3, CMP #### [facility] [address] [place] [address] Dr. Kathy Henderson Urea nitrogen [Mass/Vol] 18.0 mg/dL Normal 7.0-18.0 [facility] Comment on above: Performed By: #### T SH, LIPID, T4, FT3, CMP #### [facility] [address] [place] [address] Dr. Kathy Henderson Urea nitrogen/Creatinine [Mass ratio] 15.7 mg/mg Normal [facility] Comment on above: Performed By: #### T SH, LIPID, T4, FT3, CMP #### [facility] [address] [place] [address] Dr. Kathy Henderson T4on 06-27-2022 T4 [Mass/Vol] 6.00 ug/dL Normal 4.50-12.10 [facility] Comment on above: Performed By: #### T SH, LIPID, T4, FT3, CMP #### [facility] [address] [place] [address] Dr. Kathy Henderson TSHon 06-27-2022 TSH 2.394 uIU/mL Normal 0.358-3.740 [facility] Comment on above: Performed By: #### T SH, LIPID, T4, FT3, CMP #### [facility] [address] [place] [address] Dr. Kathy Henderson VITAMIN D 25 OHon 06-27-2022 VIT D 25-OH 29.1 ng/mL Normal [facility] Comment on above: Performed By: #### V ITJULISA, PSASC #### [facility] [address], [place] [address] Dr. Kathy Henderson VIT D RANGES SEE BELOW Normal [facility] Comment on above: Result Comment: <20 ng/mL Vit D deficient 20 - <30 ng/mL Vit D insufficient 30 - 100 ng/mL Vit D sufficient >100 ng/mL Potential Toxicity Performed By: #### V ITAD, PSASC #### [facility] [address], [place] [address] Dr. Kathy Henderson Encounters Encounter Date Encounter Type Care Provider Facility Start: 09-04-2022 End: 09-05-[address] JOE FOOTE . Facility: Start: 06-27-2022 End: 06-28-[address] JOE FOOTE . Facility: Procedures Date Procedure Procedure Detail Performing Clinician Start: 06-27-[address] IRLANDA FOOTE . Comment on above: Performed By: #### V ITAD, PSASC #### [facility] [address] [address] [address] Kathy Henderson Payers Date Payer Category Payer Unknown [id number] 1965 Unknown [id number] 1957 Unknown [id number] Summary Purpose Family History No Family History Records Found Advance Directives No Advanced Directives Records Found Additional Source Comments (unrecognized sect ion and content) No Status Records Found INFORMATION SOURCE (unrecogn ized section and content) DATE CREATED AUTHOR 09/08/2022 [facility] FOR RECORDS PERTAINING TO PATIENTS [...] BE BASED ON THE PRIMARY CLINICAL RECORDS. [facility]. provides no warranty or guarantee of the accuracy or completeness of information in this document.
[2024-08-04 16:55] LABS: Hematocrit 45.2 % (42.0-54.0); Hemoglobin 15.9 g/dL (14.0-18.0); Mean Corpuscular HGB Conc 35.2 g/dL (29.9-35.2); Mean Corpuscular Hemoglobin 30.6 pg (25.9-34.0); Mean Corpuscular Volume 86.9 fL (80.0-94.0); Mean Platelet Volume 10.2 fL (9.5-13.5); Platelet Count 196 10^3/uL (150-450); Red Cell Distribution Width 12.3 % (11.0-15.0); White Blood Count 8.7 10^3/uL (4.0-11.0)
[2024-08-04 17:01] LABS: Influenza Virus A Antigen Negative; Influenza Virus B Antigen Negative; Internal Control Within Normal Limits; SARS-CoV-2 Ag NEGATIVE (NEGATIVE)
[2024-08-04 17:06] LABS: Anion Gap 21.5; Calcium 9.5 mg/dL (8.5-10.1); Carbon Dioxide 20.3 mmol/L (21.0-32.0); Chloride 102 mmol/L (98-107); Estimated GFR (African America >60 (>=60 mL/min/1.73m^2); Estimated GFR (Non-African Ame >60 (>=60 mL/min/1.73m^2); Glucose 219 mg/dL (74-106); Potassium 4.8 mmol/L (3.5-5.1); Sodium 139 mmol/L (136-145); Troponin I High Sensitivity <4.0 pg/mL (4.0-76.1)
[2024-08-04 17:21] LABS: Band Neutrophils Absolute 0.1 10^3/uL (0.0-0.3); Metamyelocytes Absolute Manual 0.08; Segmented Neut Absolute Manual 7.91 10^3/uL (1.4-6.5)
--- NOTE | 2024-08-04 17:51 | P.HP_ITS ---
HPI H&P: HPI History of Present Illness Chief complaint: Dizziness Narrative: Patient was seen and evaluated in the office with a 1 to 2-day history of increasing dizziness, described as vertigo, definite spinning sensation, in the office was given IM Decadron, patient went home ENT: Took his oral medications as well and meclizine, and started having increasing nausea vomiting and the dizziness profusely got worse, had a slip and fall no significant injury, called the office and with that recommended presenting to the emergency room for further evaluation and labs and CT scan. In the ER patient was found to have CT negative, but significant vertigo, given Valium with some improvement but will be observed overnight When I saw patient in the emergency room, resting comfortably in the bed as long as he kept his eyes closed Opioid HPI Opioid Management Most Recent Pain and Opioid Data: Last Pain Scale 5 08/04/24 16:44 08/04/24 Last ED Pain Assessment 08/04/24 16:44 [facility] Medical History (Updated 08/04/24 @ 17:39 by Nikolai Martinez MD) Diabetic acidosis, type II ?E11.10 - Type 2 diabetes mellitus with ketoacidosis without coma (ICD-10) Surgical History (Updated 08/04/24 @ 17:38 by Derick Fields) History of arthroscopic knee surgery ?Z98.890 - Other specified postprocedural states (ICD-10) Social History Little interest or pleasure in doing things: not at all Feeling down, depressed, or hopeless: not at all Meds Home Medications and Allergies Home Medications ?Medication ?Instructions ?Recorded ?Confirmed ?Type amoxicillin 875 mg-potassium 1 tab PO BID 08/04/24 08/04/24 History clavulanate 125 mg tablet meclizine 25 mg tablet 25 mg PO TID 08/04/24 08/04/24 History metformin 500 mg tablet 500 mg PO BID 08/04/24 08/04/24 History prednisone 20 mg tablet 20 mg PO TID 08/04/24 08/04/24 History semaglutide 0.25 mg or 0.5 mg (2 0.5 mg subcut QWEEK 08/04/24 08/04/24 History mg/3 mL) subcutaneous pen injector (Ozempic) Allergies Allergy/AdvReac Type Severity Reaction Status Date / Time No Known Drug Allergies Allergy Verified 08/04/24 16:18 Exam Constitutional Vital Signs, click to edit/add: Last Vital Signs Temp 98 F 08/04/24 16:20 Pulse 90 08/04/24 17:31 Resp 23 H 08/04/24 17:31 BP 151/92 H 08/04/24 17:31 Pulse Ox 94 L 08/04/24 17:20 O2 Del Method Room Air 08/04/24 16:43 Documenting provider has reviewed patient's vital signs: yes Common normals: no apparent distress (As long as eyes were closed) Exam limitations: no altered mental status HENMT Common normals: normocephalic Eye Common normals: PERRL Other: Positive nystagmus on bilateral conjugate gaze Respiratory Common normals: normal respiratory effort Cardio Common normals: regular rate and regular rhythm Results Labs Labs: Short CBC 08/04/24 Range/Units 16:30 WBC 8.7 (4.0-11.0) 10^3/uL Hgb 15.9 (14.0-18.0) g/dL Hct 45.2 (42.0-54.0) % Plt Count 196 (150-450) 10^3/uL BMP 08/04/24 16:30 Sodium 139 Potassium 4.8 Chloride 102 Carbon Dioxide 20.3 L BUN 24.0 H Creatinine 1.20 Glucose 219 H Calcium 9.5 Assessment and Plan Assessment and Plan (1) Vertigo: Plan Acute vertigo-unable to improve as an outpatient, is somewhat better since treatment in the emergency room but unable to discharge home secondary to the nausea vomiting persisting, will admit patient to observation status for acute nystagmus, steroids, meclizine, antibiotics. If improved in a.m. possible discharge NIDDM-insulin sliding scale, will need more aggressive treatment secondary to the steroids needed for the above Admission status: Patient was initially treated as an outpatient but failed, will start patient off as observation as there is a better than 50% chance he will be discharged home tomorrow morning
--- OUTSIDE RECORDS SUMMARY | 2024-08-04 17:58 | XMS_ITS | CCD ---
Author Organization [facility] Care Team Providers Care Director Operations Broadcast Name Role Phone DARY ., DR DIAZ [...] ASHLYN CAMPOS Date: 2022-09-04 11:46 Normal [facility] CBC AUTO DIFFon 06-27-2022 BASO # 0.1 103/ul Normal 0.0-0.1 [facility] Comment on above: Performed By: #### C BC #### [facility] [address] [address] [address] Kathy Henderson Basophils/100 WBC (Bld) 1.1 % Normal 0.2-2.0 [facility] Comment on above: Performed By: #### C BC #### [facility] [address] [address] [address] Kathy Henderson EO # 0.3 103/ul Normal 0.0-0.7 [facility] Comment on above: Performed By: #### C BC #### [facility] [address] [address] [address] Kathy Henderson Eosinophils/100 WBC (Bld) 5.7 % Normal 0.9-7.0 [facility] Comment on above: Performed By: #### C BC #### [facility] [address] [address] [address] Kathy Henderson Erythrocyte distribution width (RBC) [Ratio] 13.2 % Normal 11.0-15.0 [facility] Comment on above: Performed By: #### C BC #### [facility] [address] [address] [address] Kathy Henderson Hematocrit (Bld) [Volume fraction] 48.0 % Normal 42.0-54.0 [facility] Comment on above: Performed By: #### C BC #### [facility] [address] [address] [address] Kathy Henderson Hemoglobin (Bld) [Mass/Vol] 15.5 g/dL Normal 14.0-18.0 [facility] Comment on above: Performed By: #### C BC #### [facility] [address] [address] [address] Kathy Henderson IG # 0.01 10e3/ul Normal 0.00-0.03 [facility] Comment on above: Performed By: #### C BC #### [facility] [address] [place] [address] Dr. Kathy Henderson IG % 0.2 % Normal 0.0-0.5 [facility] Comment on above: Performed By: #### C BC #### [facility] [address] [place] [address] Dr. Kathy Henderson LYMPH # 1.7 103/ul Normal 1.2-3.8 [facility] Comment on above: Performed By: #### C BC #### [facility] [address] [place] [address] Dr. Kathy Henderson Lymphocytes/100 WBC (Bld) 31.8 % Normal 20.5-60.0 [facility] Comment on above: Performed By: #### C BC #### [facility] [address] [place] [address] Dr. Kathy Henderson MANUAL DIFF REQ NO Normal [facility] Comment on above: Performed By: #### C BC #### [facility] [address] [place] [address] Dr. Kathy Henderson MCH (RBC) [Entitic mass] 30.0 pg Normal 25.9-34.0 [facility] Comment on above: Performed By: #### C BC #### [facility] [address] [place] [address] Dr. Kathy Henderson MCHC (RBC) [Mass/Vol] 32.3 g/dL Normal 29.9-35.2 [facility] Comment on above: Performed By: #### C BC #### [facility] [address] [place] [address] Dr. Kathy Henderson MCV (RBC) [Entitic vol] 92.8 fL Normal 80.0-94.0 [facility] Comment on above: Performed By: #### C BC #### [facility] [address] [place] [address] Dr. Kathy Henderson MONO # 0.3 103/ul Normal 0.3-0.8 [facility] Comment on above: Performed By: #### C BC #### [facility] [address] [place] [address] Dr. Kathy Henderson Monocytes/100 WBC (Bld) 5.5 % Normal 1.7-12.0 [facility] Comment on above: Performed By: #### C BC #### [facility] [address] [place] [address] Dr. Kathy Henderson NEUT # 3.0 103/ul Normal 1.4-6.5 [facility] Comment on above: Performed By: #### C BC #### [facility] [address] [place] [address] Dr. Kathy Henderson Neutrophils/100 WBC (Bld) 55.7 % Normal 43.0-75.0 [facility] Comment on above: Performed By: #### C BC #### [facility] [address] [place] [address] Dr. Kathy Henderson Platelet mean volume (Bld) [Entitic vol] 11.1 fL Normal 9.5-13.5 [facility] Comment on above: Performed By: #### C BC #### [facility] [address] [place] [address] Dr. Kathy Henderson PLT 154 103/ul Normal 150-450 [facility] Comment on above: Performed By: #### C BC #### [facility] [address] [place] [address] Dr. Kathy Henderson RBC 5.17 106/ul Normal 4.70-6.10 [facility] Comment on above: Performed By: #### C BC #### [facility] [address] [place] [address] Dr. Katyh Henderson WBC 5.4 103/ul Normal 4.0-11.0 [facility] Comment on above: Performed By: #### C BC #### [facility] [address] [place] [address] Dr. Kathy Henderson FREE T3on 06-27-2022 FREE T3 3.07 pg/mlL Normal 2.18-3.98 [facility] Comment on above: Performed By: #### T SH, LIPID, T4, FT3, CMP #### [facility] [address] [address] [address] Kathy Henderson GLYCOHEMOGLOBIN A1Con 2022 ADA RECOMMENDATION SEE BELOW Normal [facility] Comment on above: Result Comment: ADA RECOMMENDED LIMIT 4.0 - 6.0 ADA THERAPEUTIC TARGET < 7.0 ACTION SUGGESTED > 7.0 Performed By: #### A 1C #### [facility] [address] [address] [address] Kathy Henderson HbA1c (Bld) [Mass fraction] 5.9 % Normal 4.5-6.2 [facility] Comment on above: Performed By: #### A 1C #### [facility] [address] [place] [address] Dr. Kathy Henderson LIPID PROFILEon 06-27-2022 CHOL-HDL RATIO NORM SEE BELOW Normal [facility] Comment on above: Result Comment: 3.3 - 4.4 LOW RISK 4.4 - 7.1 AVERAGE RISK 7.1 - 11.0 MODERATE RISK >11.0 HIGH RISK Performed By: #### T SH, LIPID, T4, FT3, CMP #### [facility] [address] [place] [address] Dr. Kathy Henderson Cholesterol [Mass/Vol] 218 mg/dL Critically high <=200 [facility] Comment on above: Performed By: #### T SH, LIPID, T4, FT3, CMP #### [facility] [address] [place] [address] Dr. Kathy Henderson Cholesterol in HDL [Mass/Vol] 36 mg/dL Critically low 40-60 [facility] Comment on above: Performed By: #### T SH, LIPID, T4, FT3, CMP #### [facility] [address] [address] [address] Kathy Henderson Cholesterol in LDL [Mass/Vol] 137.8 mg/dL Normal [facility] Comment on above: Performed By: #### T SH, LIPID, T4, FT3, CMP #### [facility] [address] [place] [address] Dr. Kathy Henderson Cholesterol.total/Ch olesterol in HDL [Mass ratio] 6.1 {ratio} Normal [facility] Comment on above: Performed By: #### T SH, LIPID, T4, FT3, CMP #### [facility] [address] [place] [address] Dr. Kathy Henderson HDL NORMAL > or = 60 mg/dl - LO W CARDIOVASCULAR RISK <40 mg/dl - HIGH CARDIOVASCULAR RISK Normal [facility] Comment on above: Performed By: #### T SH, LIPID, T4, FT3, CMP #### [facility] [address] [place] [address] Dr. Kathy Henderson LDL CALC NORMAL SEE BELOW Normal [facility] Comment on above: Result Comment: <100 mg/dl OPTIMAL 100 - 129 mg/dl NEAR OR ABOVE OPTIMAL 130 - 159 mg/dl BORDERLINE HIGH 160 - 189 mg/dl HIGH >190 mg/dl VERY HIGH Performed By: #### T SH, LIPID, T4, FT3, CMP #### [facility] [address] [place] [address] Dr. Kathy Henderson Triglyceride [Mass/Vol] 221 mg/dL Critically high <=150 [facility] Comment on above: Performed By: #### T SH, LIPID, T4, FT3, CMP #### [facility] [address] [place] [address] Dr. Kathy Henderson VLDL CALC 44.2 mg/dL Normal [facility] Comment on above: Performed By: #### T SH, LIPID, T4, FT3, CMP #### [facility] [address] [place] [address] Dr. Kathy Henderson PROF 14(COMP METB)on 023 Albumin [Mass/Vol] 4.3 g/dL Normal 3.4-5.0 [facility] Comment on above: Performed By: #### T SH, LIPID, T4, FT3, CMP #### [facility] [address] [place] [address] Dr. Kathy Henderson Albumin/Globulin [Mass ratio] 1.0 {ratio} Normal [facility] Comment on above: Performed By: #### T SH, LIPID, T4, FT3, CMP #### [facility] [address] [address] [address] Kathy Henderson ALP [Catalytic activity/Vol] 66 U/L Normal 46-116 [facility] Comment on above: Performed By: #### T SH, LIPID, T4, FT3, CMP #### [facility] [address] [place] [address] Dr. Kathy Henderson ALT [Catalytic activity/Vol] 44 U/L Normal 16-63 [facility] Comment on above: Performed By: #### T SH, LIPID, T4, FT3, CMP #### [facility] [address] [place] [address] Dr. Kathy Henderson Anion gap [Moles/Vol] 13.8 mmol/L Normal [facility] Comment on above: Performed By: #### T SH, LIPID, T4, FT3, CMP #### [facility] [address] [place] [address] Dr. Kathy Henderson AST [Catalytic activity/Vol] 23 U/L Normal 15-37 [facility] Comment on above: Performed By: #### T SH, LIPID, T4, FT3, CMP #### [facility] [address] [place] [address] Dr. Kathy Henderson Bilirubin [Mass/Vol] 0.5 mg/dL Normal 0.2-1.0 [facility] Comment on above: Performed By: #### T SH, LIPID, T4, FT3, CMP #### [facility] [address] [place] [address] Dr. Kathy Henderson Calcium [Mass/Vol] 8.8 mg/dL Normal 8.5-10.1 [facility] Comment on above: Performed By: #### T SH, LIPID, T4, FT3, CMP #### [facility] [address] [place] [address] Dr. Kathy Henderson Chloride [Moles/Vol] 101 mmol/L Normal 98-107 [facility] Comment on above: Performed By: #### T SH, LIPID, T4, FT3, CMP #### [facility] [address] [place] [address] Dr. Kathy Henderson CO2 [Moles/Vol] 29.5 mmol/L Normal 21.0-32.0 [facility] Comment on above: Performed By: #### T SH, LIPID, T4, FT3, CMP #### [facility] [address] [place] [address] Dr. Kathy Henderson Creatinine [Mass/Vol] 1.15 mg/dL Normal 0.70-1.30 [facility] Comment on above: Performed By: #### T SH, LIPID, T4, FT3, CMP #### [facility] [address] [place] [address] Dr. Kathy Henderson EGFR-AF DUTCH >60 Normal >=60 [facility] Comment on above: Performed By: #### T SH, LIPID, T4, FT3, CMP #### [facility] [address] [place] [address] Dr. Kathy Henderson EGFR-NON AF DUTCH >60 Normal >=60 [facility] Comment on above: Performed By: #### T SH, LIPID, T4, FT3, CMP #### [facility] [address] [place] [address] Dr. Kathy Henderson Globulin (S) [Mass/Vol] 4.3 g/dL Normal [facility] Comment on above: Performed By: #### T SH, LIPID, T4, FT3, CMP #### [facility] [address] [place] [address] Dr. Kathy Henderson Glucose [Mass/Vol] 123 mg/dL Normal [facility] Comment on above: Performed By: #### T SH, LIPID, T4, FT3, CMP #### [facility] [address] [place] [address] Dr. Kathy Henderson Performed By: #### A 1C #### [facility] [address] [place] [address] Dr. Kathy Henderson Potassium [Moles/Vol] 4.3 mmol/L Normal 3.5-5.1 [facility] Comment on above: Performed By: #### T SH, LIPID, T4, FT3, CMP #### [facility] [address] [place] [address] Dr. Kathy Henderson Protein [Mass/Vol] 8.6 g/dL Critically high 6.4-8.2 [facility] Comment on above: Performed By: #### T SH, LIPID, T4, FT3, CMP #### [facility] [address] [place] [address] Dr. Kathy Henderson Sodium [Moles/Vol] 140 mmol/L Normal 136-145 [facility] Comment on above: Performed By: #### T SH, LIPID, T4, FT3, CMP #### [facility] [address] [place] [address] Dr. Kathy Henderson Urea nitrogen [Mass/Vol] 18.0 mg/dL Normal 7.0-18.0 [facility] Comment on above: Performed By: #### T SH, LIPID, T4, FT3, CMP #### [facility] [address] [place] [address] Dr. Kathy Henderson Urea nitrogen/Creatinine [Mass ratio] 15.7 mg/mg Normal [facility] Comment on above: Performed By: #### T SH, LIPID, T4, FT3, CMP #### [facility] [address] [place] [address] Dr. Kathy Henderson T4on 06-27-2022 T4 [Mass/Vol] 6.00 ug/dL Normal 4.50-12.10 [facility] Comment on above: Performed By: #### T SH, LIPID, T4, FT3, CMP #### [facility] [address] [place] [address] Dr. Kathy Henderson TSHon 06-27-2022 TSH 2.394 uIU/mL Normal 0.358-3.740 [facility] Comment on above: Performed By: #### T SH, LIPID, T4, FT3, CMP #### [facility] [address] [place] [address] Dr. Kathy Henderson VITAMIN D 25 OHon 06-27-2022 VIT D 25-OH 29.1 ng/mL Normal [facility] Comment on above: Performed By: #### V ITJULISA, PSASC #### [facility] [address], [place] [address] Dr. Kathy Henderson VIT D RANGES SEE BELOW Normal [facility] Comment on above: Result Comment: <20 ng/mL Vit D deficient 20 - <30 ng/mL Vit D insufficient 30 - 100 ng/mL Vit D sufficient >100 ng/mL Potential Toxicity Performed By: #### V ITAD, PSASC #### [facility] [address] [place], [place] [address] Dr. Kathy Henderson Encounters Encounter Date Encounter Type Care Provider Facility Start: 09-04-2022 End: 09-05-[address] JOE FOOTE . Facility: Start: 06-27-2022 End: 06-28-[address] JOE FOOTE . Facility: Procedures Date Procedure Procedure Detail Performing Clinician Start: 06-27-[address] IRLANDA FOOTE . Comment on above: Performed By: #### V ITAD, PSASC #### [facility] [address] [address] [address] Kathy Henderson Payers Date Payer Category Payer Unknown [id number] [id number] [id number] 1965 Unknown [id number] [id number] 1957 Unknown [id number] Summary Purpose Family History No Family History Records Found Advance Directives No Advanced Directives Records Found Additional Source Comments (unrecognized sect ion and content) No Status Records Found INFORMATION SOURCE (unrecogn ized section and content) DATE CREATED AUTHOR 09/08/2022 [facility] FOR RECORDS PERTAINING TO PATIENTS WHO ARE [...] BE BASED ON THE PRIMARY CLINICAL RECORDS. [employer] [facility]. provides no warranty or guarantee of the accuracy or completeness of information in this document.
[2024-08-04] MEDS: LACTATED RINGER'S SOLUTION 1,000 ML 100 ML IV (20:19)
[2024-08-04] MEDS: METHYLPREDNISOLONE SOD SUCC PF 125 MG/2 ML VIAL 40 MG IVP (20:20)
[2024-08-04] MEDS: MECLIZINE HCL 12.5 MG TABLET 25 MG PO (20:20)
[2024-08-04] MEDS: ACETAMINOPHEN 500 MG TABLET 1000 MG PO (20:20)
[2024-08-04] MEDS: LEVOFLOXACIN IN DEXTROSE 5 % 750 MG/150 ML PREMIX 100 MG IV (20:20)
[2024-08-04] MEDS: METFORMIN HCL 500 MG TABLET PO (21:08)
[2024-08-04 21:11] LABS: Glucometer 144 mg/dL (74-106)
[2024-08-04] MEDS: INSULIN ASPART 300 UNIT/3 ML PEN SUBQ (21:12)
[2024-08-05] VITALS (18 sets, daily range): BP systolic 137–154; BP diastolic 71–94; PULSE 67–94; TEMP 36.2–36.8; O2SAT 92–96
[2024-08-05] MEDS: MECLIZINE HCL 12.5 MG TABLET 25 MG PO ×4 (01:02→21:27)
[2024-08-05] MEDS: METHYLPREDNISOLONE SOD SUCC PF 125 MG/2 ML VIAL 40 MG IVP (01:03)
[2024-08-05] MEDS: ONDANSETRON PF 4 MG/2 ML VIAL IV (01:06)
[2024-08-05] MEDS: DIAZEPAM 10 MG/2 ML SYRINGE 5 MG IV (05:26)
[2024-08-05 05:52] LABS: Basophils Percent Auto 0.1 % (0.2-2.0); Eosinophils Percent Auto 0.1 % (0.9-7.0); Hematocrit 43.4 % (42.0-54.0); Hemoglobin 15.3 g/dL (14.0-18.0); Immature Granulocytes Abs Auto 0.05 10^3/uL (0.00-0.03); Immature Granulocytes Pct Auto 0.4 % (0.0-0.5); Lymphocytes Absolute Auto 0.8 10^3/uL (1.2-3.8); Lymphocytes Percent Auto 6.1 % (20.5-60.0); Mean Corpuscular HGB Conc 35.3 g/dL (29.9-35.2); Mean Corpuscular Hemoglobin 30.7 pg (25.9-34.0); Mean Corpuscular Volume 87.1 fL (80.0-94.0); Monocytes Absolute Auto 0.2 10^3/uL (0.3-0.8); Monocytes Percent Auto 1.2 % (1.7-12.0); Neutrophils Absolute Auto 11.4 10^3/uL (1.4-6.5); Neutrophils Percent Auto 92.1 % (43.0-75.0); Platelet Count 238 10^3/uL (150-450); Red Blood Count 4.98 10^6/uL (4.70-6.10); Red Cell Distribution Width 12.5 % (11.0-15.0); White Blood Count 12.4 10^3/uL (4.0-11.0)
[2024-08-05 06:05] LABS: Anion Gap 15.2; BUN Creatinine Ratio 20.2; Calcium 9.1 mg/dL (8.5-10.1); Carbon Dioxide 23.9 mmol/L (21.0-32.0); Chloride 104 mmol/L (98-107); Estimated GFR (African America >60 (>=60 mL/min/1.73m^2); Estimated GFR (Non-African Ame >60 (>=60 mL/min/1.73m^2); Glucose 167 mg/dL (74-106); Potassium 4.1 mmol/L (3.5-5.1); Sodium 139 mmol/L (136-145)
--- NOTE | 2024-08-05 07:32 | P.PN_ITS ---
Progress Note: Subjective Subjective Interval history: Patient noted just minimal improvement so far. Still with dizziness with any head movement Exam Constitutional Vital Signs, click to edit/add: Last Vital Signs Temp 97.5 F L 08/05/24 04:00 Pulse 80 08/05/24 05:40 Resp 18 08/05/24 04:00 BP 152/93 H 08/05/24 04:00 Pulse Ox 95 08/05/24 04:00 O2 Del Method Room Air 08/05/24 04:00 Documenting provider has reviewed patient's vital signs: yes Common normals: no apparent distress (Needs to maintain eye closure) Exam limitations: no altered mental status HENMT Common normals: normocephalic Eye Common normals: PERRL Other: Positive nystagmus on bilateral conjugate gaze Respiratory Common normals: normal respiratory effort, no retractions and clear to auscultation bilaterally Cardio Common normals: regular rate, regular rhythm and no murmurs Neuro Other: Nystagmus on bilateral conjugate gaze persisting Progress Note: Objective Labs Labs: Short CBC 08/04/24 08/05/24 Range/Units 16:30 05:36 WBC 8.7 12.4 H (4.0-11.0) 10^3/uL Hgb 15.9 15.3 (14.0-18.0) g/dL Hct 45.2 43.4 (42.0-54.0) % Plt Count 196 238 (150-450) 10^3/uL BMP 08/04/24 08/05/24 16:30 05:36 Sodium 139 139 Potassium 4.8 4.1 Chloride 102 104 Carbon Dioxide 20.3 L 23.9 BUN 24.0 H 22.0 H Creatinine 1.20 1.09 Glucose 219 H 167 H Calcium 9.5 9.1 Progress Note: A&P Assessment and Plan (1) Vertigo: Plan Acute vertigo-unable to improve as an outpatient, is somewhat better since treatment in the emergency room but unable to discharge home secondary to the nausea vomiting persisting, will admit patient to observation status for acute nystagmus, steroids, meclizine, antibiotics.-No significant improvement so far, PT to work with patient this morning, will change patient to Decadron and increase frequency of meclizine NIDDM-insulin sliding scale, will need more aggressive treatment secondary to the steroids needed for the above Admission status: Patient currently in observation status, if improved later today can be discharged to home in improving condition. Medications see list. Follow-up with me in the office either later this week or next, if patient not improved, then medically necessary treatment will span 2 midnights will change patient to inpatient status ?
[2024-08-05] MEDS: 0.9 % SODIUM CHLORIDE 1,000 ML 500 ML IV (07:38)
[2024-08-05 07:41] LABS: Glucometer 137 mg/dL (74-106)
[2024-08-05] MEDS: METFORMIN HCL 500 MG TABLET PO ×2 (08:13→21:27)
[2024-08-05] MEDS: DEXAMETHASONE SOD PHOS 10 MG/ML VIAL IV (08:14)
[2024-08-05] MEDS: LACTATED RINGER'S SOLUTION 1,000 ML 100 ML IV ×2 (10:07→17:34)
[2024-08-05] MEDS: FLU VAC QS 2024(6MS UP)CEL/PF 60 MCG/0.5 ML SYRINGE IM (10:08)
[2024-08-05] MEDS: ACETAMINOPHEN 500 MG TABLET 1000 MG PO ×2 (12:08→17:57)
[2024-08-05 12:14] LABS: Glucometer 153 mg/dL (74-106)
--- NOTE | 2024-08-05 13:00 | SWNOTE1 ---
SW reviewed PT/OT notes and recommended home with family and to follow up with local PT.
[2024-08-05 16:27] LABS: Glucometer 165 mg/dL (74-106)
[2024-08-05] MEDS: INSULIN ASPART 300 UNIT/3 ML PEN SUBQ ×2 (16:58→21:28)
[2024-08-05 21:17] LABS: Glucometer 160 mg/dL (74-106)
[2024-08-05] MEDS: LEVOFLOXACIN IN DEXTROSE 5 % 750 MG/150 ML PREMIX 100 MG IV (21:27)
[2024-08-06] VITALS (10 sets, daily range): BP systolic 123–133; BP diastolic 70–83; PULSE 63–75; TEMP 36.6–36.8; O2SAT 94–97
[2024-08-06] MEDS: MECLIZINE HCL 12.5 MG TABLET 25 MG PO ×2 (02:53→08:56)
[2024-08-06] MEDS: LACTATED RINGER'S SOLUTION 1,000 ML 100 ML IV (04:51)
[2024-08-06 06:28] LABS: Basophils Percent Auto 0.1 % (0.2-2.0); Hematocrit 42.4 % (42.0-54.0); Hemoglobin 14.4 g/dL (14.0-18.0); Immature Granulocytes Abs Auto 0.08 10^3/uL (0.00-0.03); Immature Granulocytes Pct Auto 0.5 % (0.0-0.5); Lymphocytes Absolute Auto 1.8 10^3/uL (1.2-3.8); Lymphocytes Percent Auto 11.2 % (20.5-60.0); Mean Corpuscular Hemoglobin 30.1 pg (25.9-34.0); Mean Corpuscular Volume 88.7 fL (80.0-94.0); Mean Platelet Volume 10.9 fL (9.5-13.5); Monocytes Percent Auto 6.1 % (1.7-12.0); Neutrophils Absolute Auto 12.8 10^3/uL (1.4-6.5); Neutrophils Percent Auto 82.1 % (43.0-75.0); Platelet Count 206 10^3/uL (150-450); Red Blood Count 4.78 10^6/uL (4.70-6.10); Red Cell Distribution Width 12.7 % (11.0-15.0); White Blood Count 15.6 10^3/uL (4.0-11.0)
[2024-08-06 06:33] LABS: Anion Gap 12.3; BUN Creatinine Ratio 19.5; Calcium 8.8 mg/dL (8.5-10.1); Carbon Dioxide 26.7 mmol/L (21.0-32.0); Chloride 106 mmol/L (98-107); Estimated GFR (African America >60 (>=60 mL/min/1.73m^2); Estimated GFR (Non-African Ame >60 (>=60 mL/min/1.73m^2); Glucose 126 mg/dL (74-106); Sodium 141 mmol/L (136-145)
--- NOTE | 2024-08-06 07:57 | P.DS_ITS ---
DS: Providers Provider Date of admission: 08/04/24 17:53 Primary care physician: Nemesio Angelo MD Consults: 08/04/24 17:46 Occupational Therapy Eval and Treat Routine Reason for consultation: Only if needed for Rehab Has provider been notified: No Physical Therapy Eval and Treat Routine Reason for consultation: Treat vertigo Has provider been notified: No DS: Diagnosis Discharge Diagnosis (1) Vertigo: Plan Acute vertigo-unable to improve as an outpatient, is somewhat better since pepe atment in the emergency room but unable to discharge home secondary to the nausea vomiting persisting, will admit patient to observation status for acute nystagmus, steroids, meclizine, antibiotics.-No significant improvement so far, PT to work with patient this morning, will change patient to Decadron and increase frequency of meclizine NIDDM-insulin sliding scale, will need more aggressive treatment secondary to the steroids needed for the above Dehydration - improving at time of d/c DS: Summary Hospital Course Hospital Course: Patient seen and evaluated in the office with increasing dizziness, vertigo type, treated with IM injection of steroids, and sent home with oral prednisone, and meclizine, antibiotics. Patient at home's started to get worse, losing his balance more emesis persisting, patient presented to emergency room with intractable vertigo, admitted, treated with IV steroids, meclizine, physical therapy, really did not respond significantly to the initial dosage of medications or the physical therapy. This morning however he does feel better still with some dizziness, is able to eat, if he can eat and ambulate safely this morning he will be discharged to home in improving condition. Medications to this. Follow-up with me in the office within the next week. Time Spent with Patient Time attestation: Total time spent providing and/or coordinating discharge services: Exam Constitutional Vital Signs, click to edit/add: Last Vital Signs Temp 98.2 F 08/06/24 03:01 Pulse 69 08/06/24 07:52 Resp 16 08/06/24 03:01 BP 133/83 08/06/24 03:01 Pulse Ox 96 08/06/24 03:01 O2 Del Method Room Air 08/06/24 03:01 Documenting provider has reviewed patient's vital signs: yes Common normals: no apparent distress (Much improved) Exam limitations: no altered mental status HENMT Common normals: normocephalic Eye Common normals: PERRL Other: Positive nystagmus on bilateral conjugate gaze Respiratory Common normals: normal respiratory effort, no retractions and clear to auscultation bilaterally Cardio Common normals: regular rate, regular rhythm and no murmurs Neuro Other: Minimal nystagmus DS: Data Data Completed and Pending Labs on day of discharge: Labs from last 24 hours 08/06/24 08/05/24 08/05/24 06:06 21:15 16:26 WBC 15.6 H RBC 4.78 Hgb 14.4 Hct 42.4 MCV 88.7 MCH 30.1 MCHC 34.0 RDW 12.7 Plt Count 206 MPV 10.9 Neut % (Auto) 82.1 H Lymph % (Auto) 11.2 L Haskell % (Auto) 6.1 Eos % (Auto) 0.0 L Baso % (Auto) 0.1 L Neut # (Auto) 12.8 H Lymph # (Auto) 1.8 Haskell # (Auto) 1.0 H Eos # (Auto) 0.0 Baso # (Auto) 0.0 Abs Immat Gran (auto) 0.08 H Imm/Tot Granulo (auto) 0.5 Sodium 141 Potassium 4.0 Chloride 106 Carbon Dioxide 26.7 Anion Gap 12.3 BUN 22.0 H Creatinine 1.13 Est GFR ( Amer) >60 Est GFR (Non-Af Amer) >60 BUN/Creatinine Ratio 19.5 Glucose 126 H Calcium 8.8 POC Glucose 160 H 165 H 08/05/24 12:05 WBC RBC Hgb Hct MCV MCH MCHC RDW Plt Count MPV Neut % (Auto) Lymph % (Auto) Haskell % (Auto) Eos % (Auto) Baso % (Auto) Neut # (Auto) Lymph # (Auto) Haskell # (Auto) Eos # (Auto) Baso # (Auto) Abs Immat Gran (auto) Imm/Tot Granulo (auto) Sodium Potassium Chloride Carbon Dioxide Anion Gap BUN Creatinine Est GFR ( Amer) Est GFR (Non-Af Amer) BUN/Creatinine Ratio Glucose Calcium POC Glucose 153 H Discharge Plan Discharge Disposition: Home, Self-Care Condition: Good Discharge Medications: Continued amoxicillin-pot clavulanate 875-125 mg tablet 1 tab PO BID meclizine 25 mg tablet 25 mg PO TID metformin 500 mg tablet 500 mg PO BID Ozempic 0.25 mg or 0.5 mg (2 mg/3 mL) pen injector 0.5 mg SUBCUT QWEEK Discontinued prednisone 20 mg tablet 20 mg PO TID Print Language: Dutch Forms: Portal Instructions
[2024-08-06] MEDS: METFORMIN HCL 500 MG TABLET PO (08:55)
--- NOTE | 2024-08-10 15:02 | CM.DCFOLLOWU ---
Person spoke with:patient How are you feeling?well How is your pain?none Did you understand your discharge instructions? yes Do you have any questions about your discharge instructions? no Were you given any prescriptions at discharge? yes Were you able to get your prescriptions filled?yes Do you understand how to take your medications as ordered?yes Do you have any questions about your follow up appointment and do you plan to keep your follow up appointment? no questions, follow up was Friday Is there anything else that you would like to discuss?no Questions/Comments/Concerns/Other:none
== END 2024-08-06 13:33 | disposition home or self-care (01) ==
LOC: ER 17:39 → MS 17:56
PROVIDERS: Admitting Provider Family Medicine; Emergency Provider Student in an Organized Health Care Education/Training Program; PCP Family Medicine; Visit Provider Family Medicine
DX: R42 Dizziness and giddiness (principal); R11.2 Nausea with vomiting, unspecified; H55.00 Unspecified nystagmus; Z23 Encounter for immunization; E11.9 Type 2 diabetes mellitus without complications; Z79.84 Long term (current) use of oral hypoglycemic drugs; Z79.85 Long-term (current) use of injectable non-insulin antidiabetic drugs; I10 Essential (primary) hypertension; G47.33 Obstructive sleep apnea (adult) (pediatric); Z98.52 Vasectomy status; E86.0 Dehydration
CPT/HCPCS: 36415; 70450; 72125; 72141; 80048; 82948; 84484; 85007; 85025; 85027; 87804; 87811; 90674; 93005; 94761; 96361; 96365; 96366; 96375; 96376; 97165; 97530; 99285; G0008; G0378; J1100; J2405; J2919; J3360

== ENCOUNTER 2024-08-19 14:36 | Outpatient (OUT) | payer OTHER, SELFPAY ==
--- NOTE | 2024-08-19 | MR_ITS ---
The [address] [address] Patient Name: KAHLIL MOODY MRN: [id number] date: 1965 Sex: M Assigned Patient Location: MRI Current Patient Location: MRI Accession/Order Number: [id number] Exam Date: 08/19/2024 23:33 Report Date: 08/19/2024 23:38 At the request of: JOE FOOTE MD Procedure: MR head/brain wo/w con MRI of the brain with and without IV contrast. Reason for exam: Vertigo for 2 weeks. COMPARISON: CT brain 08/04/2024. TECHNIQUE: Multisequence, multiplanar images of the brain were obtained before and after the use of IV contrast. FINDINGS: No evidence of restricted diffusion is an diffusion-weighted imaging. No evidence of blood products are seen on T2 Star imaging. Cortical atrophy with mild chronic microvascular ischemic changes. Posterior fossa appears grossly unremarkable. Intraorbital contents appear unremarkable. No significant paranasal sinus disease. Midline structures appear unremarkable. Postcontrast imaging demonstrates no abnormal enhancement. MR/MR head/brain wo/w con IMPRESSION: No acute intracranial process. No abnormal enhancement is seen. Cortical atrophy with mild chronic microvascular ischemic changes. Impression dictated by: Sony Sy Jr., D.O.08/19/2024 11:38 PM Dictation Location: [place] [address] Electronically authenticated by: [id number] Y Date: 08/19/2024 23:38
--- OUTSIDE RECORDS SUMMARY | 2024-08-19 14:47 | XMS_ITS | CCD ---
Author Organization [facility] Care Team Providers Care Nursing Aide Name Role Phone DARY ., DR DIAZ [...] ASHLYN CAMPOS Date: 2022-09-04 11:46 Normal [facility] CBC AUTO DIFFon 06-27-2022 BASO # 0.1 103/ul Normal 0.0-0.1 [facility] Comment on above: Performed By: #### C BC #### [facility] [address] [address] [address] Kathy Henderson Basophils/100 WBC (Bld) 1.1 % Normal 0.2-2.0 [facility] Comment on above: Performed By: #### C BC #### [facility] [address] [address] [address] Kathy Henderson EO # 0.3 103/ul Normal 0.0-0.7 [facility] Comment on above: Performed By: #### C BC #### [facility] [address] [address] [address] Kathy Henderson Eosinophils/100 WBC (Bld) 5.7 % Normal 0.9-7.0 [facility] Comment on above: Performed By: #### C BC #### [facility] [address] [address] [address] Kathy Henderson Erythrocyte distribution width (RBC) [Ratio] 13.2 % Normal 11.0-15.0 [facility] Comment on above: Performed By: #### C BC #### [facility] [address] [address] [address] Kathy Henderson Hematocrit (Bld) [Volume fraction] 48.0 % Normal 42.0-54.0 [facility] Comment on above: Performed By: #### C BC #### [facility] [address] [address] [address] Kathy Henderson Hemoglobin (Bld) [Mass/Vol] 15.5 g/dL Normal 14.0-18.0 [facility] Comment on above: Performed By: #### C BC #### [facility] [address] [address] [address] Kathy Henderson IG # 0.01 10e3/ul Normal 0.00-0.03 [facility] Comment on above: Performed By: #### C BC #### [facility] [address] [place] [address] Dr. Kathy Henderson IG % 0.2 % Normal 0.0-0.5 [facility] Comment on above: Performed By: #### C BC #### [facility] [address] [place] [address] Dr. Kathy Henderson LYMPH # 1.7 103/ul Normal 1.2-3.8 [facility] Comment on above: Performed By: #### C BC #### [facility] [address] [place] [address] Dr. Kathy Henderson Lymphocytes/100 WBC (Bld) 31.8 % Normal 20.5-60.0 [facility] Comment on above: Performed By: #### C BC #### [facility] [address] [place] [address] Dr. Kathy Henderson MANUAL DIFF REQ NO Normal [facility] Comment on above: Performed By: #### C BC #### [facility] [address] [place] [address] Dr. Kathy Henderson MCH (RBC) [Entitic mass] 30.0 pg Normal 25.9-34.0 [facility] Comment on above: Performed By: #### C BC #### [facility] [address] [place] [address] Dr. Kathy Henderson MCHC (RBC) [Mass/Vol] 32.3 g/dL Normal 29.9-35.2 [facility] Comment on above: Performed By: #### C BC #### [facility] [address] [place] [address] Dr. Kathy Henderson MCV (RBC) [Entitic vol] 92.8 fL Normal 80.0-94.0 [facility] Comment on above: Performed By: #### C BC #### [facility] [address] [place] [address] Dr. Kathy Henderson MONO # 0.3 103/ul Normal 0.3-0.8 [facility] Comment on above: Performed By: #### C BC #### [facility] [address] [place] [address] Dr. Kathy Henderson Monocytes/100 WBC (Bld) 5.5 % Normal 1.7-12.0 [facility] Comment on above: Performed By: #### C BC #### [facility] [address] [place] [address] Dr. Kathy Henderson NEUT # 3.0 103/ul Normal 1.4-6.5 [facility] Comment on above: Performed By: #### C BC #### [facility] [address] [place] [address] Dr. Kathy Henderson Neutrophils/100 WBC (Bld) 55.7 % Normal 43.0-75.0 [facility] Comment on above: Performed By: #### C BC #### [facility] [address] [place] [address] Dr. Kathy Henderson Platelet mean volume (Bld) [Entitic vol] 11.1 fL Normal 9.5-13.5 [facility] Comment on above: Performed By: #### C BC #### [facility] [address] [place] [address] Dr. Kathy Henderson PLT 154 103/ul Normal 150-450 [facility] Comment on above: Performed By: #### C BC #### [facility] [address] [place] [address] Dr. Kathy Henderson RBC 5.17 106/ul Normal 4.70-6.10 [facility] Comment on above: Performed By: #### C BC #### [facility] [address] [place] [address] Dr. Kathy Henderson WBC 5.4 103/ul Normal 4.0-11.0 [facility] Comment on above: Performed By: #### C BC #### [facility] [address] [place] [address] Dr. Kathy Henderson FREE T3on 06-27-2022 FREE T3 3.07 pg/mlL Normal 2.18-3.98 [facility] Comment on above: Performed By: #### T SH, LIPID, T4, FT3, CMP #### [facility] [address] [address] [address] Kathy Henderson GLYCOHEMOGLOBIN A1Con 2022 ADA RECOMMENDATION SEE BELOW Normal [facility] Comment on above: Result Comment: ADA RECOMMENDED LIMIT 4.0 - 6.0 ADA THERAPEUTIC TARGET < 7.0 ACTION SUGGESTED > 7.0 Performed By: #### A 1C #### [facility] [address] [address] [address] Kathy Henderson HbA1c (Bld) [Mass fraction] 5.9 % Normal 4.5-6.2 [facility] Comment on above: Performed By: #### A 1C #### [facility] [address] [place] [address] Dr. Kathy Henderson LIPID PROFILEon 06-27-2022 CHOL-HDL RATIO NORM SEE BELOW Normal [facility] Comment on above: Result Comment: 3.3 - 4.4 LOW RISK 4.4 - 7.1 AVERAGE RISK 7.1 - 11.0 MODERATE RISK >11.0 HIGH RISK Performed By: #### T SH, LIPID, T4, FT3, CMP #### [facility] [address] [place] [address] Dr. Kathy Henderson Cholesterol [Mass/Vol] 218 mg/dL Critically high <=200 [facility] Comment on above: Performed By: #### T SH, LIPID, T4, FT3, CMP #### [facility] [address] [place] [address] Dr. Kathy Henderson Cholesterol in HDL [Mass/Vol] 36 mg/dL Critically low 40-60 [facility] Comment on above: Performed By: #### T SH, LIPID, T4, FT3, CMP #### [facility] [address] [address] [address] Kathy Henderson Cholesterol in LDL [Mass/Vol] 137.8 mg/dL Normal [facility] Comment on above: Performed By: #### T SH, LIPID, T4, FT3, CMP #### [facility] [address] [place] [address] Dr. Kathy Henderson Cholesterol.total/Ch olesterol in HDL [Mass ratio] 6.1 {ratio} Normal [facility] Comment on above: Performed By: #### T SH, LIPID, T4, FT3, CMP #### [facility] [address] [place] [address] Dr. Kathy Henderson HDL NORMAL > or = 60 mg/dl - LO W CARDIOVASCULAR RISK <40 mg/dl - HIGH CARDIOVASCULAR RISK Normal [facility] Comment on above: Performed By: #### T SH, LIPID, T4, FT3, CMP #### [facility] [address] [place] [address] Dr. Kathy Henderson LDL CALC NORMAL SEE BELOW Normal [facility] Comment on above: Result Comment: <100 mg/dl OPTIMAL 100 - 129 mg/dl NEAR OR ABOVE OPTIMAL 130 - 159 mg/dl BORDERLINE HIGH 160 - 189 mg/dl HIGH >190 mg/dl VERY HIGH Performed By: #### T SH, LIPID, T4, FT3, CMP #### [facility] [address] [place] [address] Dr. Kathy Henderson Triglyceride [Mass/Vol] 221 mg/dL Critically high <=150 [facility] Comment on above: Performed By: #### T SH, LIPID, T4, FT3, CMP #### [facility] [address] [place] [address] Dr. Kathy Henderson VLDL CALC 44.2 mg/dL Normal [facility] Comment on above: Performed By: #### T SH, LIPID, T4, FT3, CMP #### [facility] [address] [place] [address] Dr. Kathy Henderson PROF 14(COMP METB)on 023 Albumin [Mass/Vol] 4.3 g/dL Normal 3.4-5.0 [facility] Comment on above: Performed By: #### T SH, LIPID, T4, FT3, CMP #### [facility] [address] [place] [address] Dr. Kathy Henderson Albumin/Globulin [Mass ratio] 1.0 {ratio} Normal [facility] Comment on above: Performed By: #### T SH, LIPID, T4, FT3, CMP #### [facility] [address] [address] [address] Kathy Henderson ALP [Catalytic activity/Vol] 66 U/L Normal 46-116 [facility] Comment on above: Performed By: #### T SH, LIPID, T4, FT3, CMP #### [facility] [address] [place] [address] Dr. Kathy Henderson ALT [Catalytic activity/Vol] 44 U/L Normal 16-63 [facility] Comment on above: Performed By: #### T SH, LIPID, T4, FT3, CMP #### [facility] [address] [place] [address] Dr. Kathy Henderson Anion gap [Moles/Vol] 13.8 mmol/L Normal [facility] Comment on above: Performed By: #### T SH, LIPID, T4, FT3, CMP #### [facility] [address] [place] [address] Dr. Kathy Henderson AST [Catalytic activity/Vol] 23 U/L Normal 15-37 [facility] Comment on above: Performed By: #### T SH, LIPID, T4, FT3, CMP #### [facility] [address] [place] [address] Dr. Kathy Henderson Bilirubin [Mass/Vol] 0.5 mg/dL Normal 0.2-1.0 [facility] Comment on above: Performed By: #### T SH, LIPID, T4, FT3, CMP #### [facility] [address] [place] [address] Dr. Kathy Henderson Calcium [Mass/Vol] 8.8 mg/dL Normal 8.5-10.1 [facility] Comment on above: Performed By: #### T SH, LIPID, T4, FT3, CMP #### [facility] [address] [place] [address] Dr. Kathy Henderson Chloride [Moles/Vol] 101 mmol/L Normal 98-107 [facility] Comment on above: Performed By: #### T SH, LIPID, T4, FT3, CMP #### [facility] [address] [place] [address] Dr. Kathy Henderson CO2 [Moles/Vol] 29.5 mmol/L Normal 21.0-32.0 [facility] Comment on above: Performed By: #### T SH, LIPID, T4, FT3, CMP #### [facility] [address] [place] [address] Dr. Kathy Henderson Creatinine [Mass/Vol] 1.15 mg/dL Normal 0.70-1.30 [facility] Comment on above: Performed By: #### T SH, LIPID, T4, FT3, CMP #### [facility] [address] [place] [address] Dr. Kathy Henderson EGFR-AF RWANDAN >60 Normal >=60 [facility] Comment on above: Performed By: #### T SH, LIPID, T4, FT3, CMP #### [facility] [address] [place] [address] Dr. Kathy Henderson EGFR-NON AF RWANDAN >60 Normal >=60 [facility] Comment on above: Performed By: #### T SH, LIPID, T4, FT3, CMP #### [facility] [address] [place] [address] Dr. Kathy Henderson Globulin (S) [Mass/Vol] 4.3 g/dL Normal [facility] Comment on above: Performed By: #### T SH, LIPID, T4, FT3, CMP #### [facility] [address] [place] [address] Dr. Kathy Henderson Glucose [Mass/Vol] 123 mg/dL Normal [facility] Comment on above: Performed By: #### T SH, LIPID, T4, FT3, CMP #### [facility] [address] [place] [address] Dr. Kathy Henderson Performed By: #### A 1C #### [facility] [address] [place] [address] Dr. Kathy Henderson Potassium [Moles/Vol] 4.3 mmol/L Normal 3.5-5.1 [facility] Comment on above: Performed By: #### T SH, LIPID, T4, FT3, CMP #### [facility] [address] [place] [address] Dr. Kathy Henderson Protein [Mass/Vol] 8.6 g/dL Critically high 6.4-8.2 [facility] Comment on above: Performed By: #### T SH, LIPID, T4, FT3, CMP #### [facility] [address] [place] [address] Dr. Kathy Henderson Sodium [Moles/Vol] 140 mmol/L Normal 136-145 [facility] Comment on above: Performed By: #### T SH, LIPID, T4, FT3, CMP #### [facility] [address] [place] [address] Dr. Kathy Henderson Urea nitrogen [Mass/Vol] 18.0 mg/dL Normal 7.0-18.0 [facility] Comment on above: Performed By: #### T SH, LIPID, T4, FT3, CMP #### [facility] [address] [place] [address] Dr. Kathy Henderson Urea nitrogen/Creatinine [Mass ratio] 15.7 mg/mg Normal [facility] Comment on above: Performed By: #### T SH, LIPID, T4, FT3, CMP #### [facility] [address] [place] [address] Dr. Kathy Henderson T4on 06-27-2022 T4 [Mass/Vol] 6.00 ug/dL Normal 4.50-12.10 [facility] Comment on above: Performed By: #### T SH, LIPID, T4, FT3, CMP #### [facility] [address] [place] [address] Dr. Kathy Henderson TSHon 06-27-2022 TSH 2.394 uIU/mL Normal 0.358-3.740 [facility] Comment on above: Performed By: #### T SH, LIPID, T4, FT3, CMP #### [facility] [address] [place] [address] Dr. Kathy Henderson VITAMIN D 25 OHon 06-27-2022 VIT D 25-OH 29.1 ng/mL Normal [facility] Comment on above: Performed By: #### V ITJULISA, PSASC #### [facility] [address] [place], [place] [address] Dr. Kathy Henderson VIT D RANGES SEE BELOW Normal [facility] Comment on above: Result Comment: <20 ng/mL Vit D deficient 20 - <30 ng/mL Vit D insufficient 30 - 100 ng/mL Vit D sufficient >100 ng/mL Potential Toxicity Performed By: #### V ITAD, PSASC #### [facility] [address] [place], [place] [address] Dr. Kathy Henderson Encounters Encounter Date Encounter Type Care Provider Facility Start: 09-04-2022 End: 09-05-[address] JOE FOOTE . Facility: Start: 06-27-2022 End: 06-28-[address] JOE FOOTE . Facility: Procedures Date Procedure Procedure Detail Performing Clinician Start: 06-27-[address] IRLANDA FOOTE . Comment on above: Performed By: #### V ITAD, PSASC #### [facility] [address] [address] [address] Kathy Henderson Payers Date Payer Category Payer Unknown [id number] 1965 Unknown [id number] 1957 Unknown [id number] Summary Purpose Family History No Family History Records Found Advance Directives No Advanced Directives Records Found Additional Source Comments (unrecognized sect ion and content) No Status Records Found INFORMATION SOURCE (unrecogn ized section and content) DATE CREATED AUTHOR 09/08/2022 [facility] FOR RECORDS PERTAINING TO PATIENTS [...] BE BASED ON THE PRIMARY CLINICAL RECORDS. [employer] [facility]. provides no warranty or guarantee of the accuracy or completeness of information in this document.
== END 2024-08-19 14:37 | disposition home or self-care (01) ==
LOC: MRI 14:36
PROVIDERS: PCP Family Medicine; Visit Provider Family Medicine
DX: R42 Dizziness and giddiness (principal)
CPT/HCPCS: 70553; A9575

== ENCOUNTER 2025-03-16 08:47 | Outpatient (OUT) | payer OTHER, SELFPAY ==
--- OUTSIDE RECORDS SUMMARY | 2024-10-11 06:52 | XMS_ITS ---
Author Name Auto Generated Organization [facility] Care Team Providers Care Architectural Examiner Name Role Phone MAIA HUGHES Attending Unavailable JOE FOOTE Referring Unavailable RENE RUIZ Attending Unavailable MAIA HUGHES Referring Unavailable RENE RUIZ Attending Unavailable MAIA HUGHES Referring Unavailable RENE RUIZ Attending Unavailable MAIA HUGHES Referring Unavailable PROBLEMS No Problem Records Found PROCEDURES No Procedure Records Found RESULTS No Result Records Found ALLERGIES No Allergies Records Found ENCOUNTERS ADMIT/DISCHARGE ACCOUNT NUMBER ADMITTING ENCOUNTER CLASS LOCATION SOURCE 10/11/2024/ 5 [id number] Ambulatory Building:[facility] 10/04/2024/ 5 [id number] Ambulatory Building:[facility] 09/24/2024/ 5 [id number] Ambulatory Building:[facility] 09/23/2024/ 5 [id number] Ambulatory Building:[facility] PAYERS ENCOUNTER GUARANTOR PAYER SUBSCRIBER SOURCE 10/11/2024 KAHLIL MARIESDOB: [id number] [address] [address]Pxx: (HP) [facility] [id number] Date:2017-06-16 KAHLIL CONTRERASDOB: [id number] [address] [facility] EPIC 10/04/2024 KAHLIL CONTRERASDOB: [address] [address]Bvl: (HP) [facility]: [id number] Date:2017-06-16 KAHLIL CONTRERASDOB: [id number] [address] [address] [facility] EPIC 09/24/2024 KAHLIL CONTRERASDOB: [address] [address]Klo: (HP) [facility]: [id number] Date:2017-06-16 KAHLIL CONTRERASDOB: [id number] [address] [address] [facility] EPIC 09/23/2024 KAHLIL CONTRERASDOB: [address] [address]Dol: (HP) [facility] Number: [id number] Date:2017-06-16 KAHLIL CONTRERASDOB: [id number] [address] [facility] EPIC
--- OUTSIDE RECORDS SUMMARY | 2025-03-16 08:51 | XMS_ITS | Patient Health Record ---
Author Organization The [facility] in [place] Address [address] [place] [address] Care Team Providers Care It Professional Name Role Phone Regulo Angelo Primary Care Provider Allergies Allergen (clinical drug ingredient) Drug/Non Drug Allergy documented on EMR Reaction Allergy Type Onset Date Status empagliflozin Jardiance Unknown Drug Allergy Act shameka simvastatin Simvastatin Unknown Drug Allergy Act shameka Results Component Value Reference Range Notes INFLUENZA A AND B AG Reviewed date:08/04/2024 06:55:24 PM Interpretation: Performing Lab: Notes/Report: The [facility] , Influenza Virus A Antigen Negative cannot be ruled out. Flu A antigen in the sample may be Negative for Flu A protein antigen. Infection due to Flu A below the detection limit of the test. Influenza Virus B Antigen Negative cannot be ruled out. Flu B antigen in the sample may be Negative for Flu B protein antigen. Infection due to Flu B below the detection limit of the test. Performing Lab: see note ML - The [facility] LB SARS-CoV-2 Ag* Reviewed date:08/04/2024 06:55:24 PM Interpretation: Performing Lab: Notes/Report: The [facility] , SARS-CoV-2 Ag NEGATIVE NEGATIVE terminated or authorization is revoked sooner. authorized for the duration of the declaration that CLIA that meet the requirements to perform moderate or high (EUA) for use by authorized laboratories certified under emergency use of in vitro diagnostic tests for detection complexity testing. This test has been authorized only for the detection of proteins from SARS-CoV-2, not for any other circumstances exist justifying the authorization of authorized by the FDA under an Emergency Use Authorization and/or diagnosis of Covid-19 under section 564(b)(1) of the This test has not been FDA cleared or approved, but has been viruses or pathogens. The emergency use of this test is Act, 21 U.S.C. 360bbb-3(b)(1), unless the declaration is Performing Lab: see note ML - The [facility] LB PROF CHEM 8 (BAS METB) Reviewed date:08/05/2024 08:09:37 AM Interpretation: Performing Lab: Notes/Report: The [facility] , Sodium 139 136-145 mmol/L Potassium 4.1 3.5-5.1 mmol/L Chloride 104 98-107 mmol/L Carbon Dioxide 23.9 21.0-32.0 mmol/L Anion Gap 15.2 Glucose 167 74-106 mg/dL Blood Urea Nitrogen 22.0 7.0-18.0 mg/dL Creatinine 1.09 0.70-1.30 mg/dL Estimated GFR ( Neelima >60 >=60 mL/min/1.73m 2 Estimated GFR (Non- Charlene >60 >=60 mL/min/1.73m 2 BUN Creatinine Ratio 20.2 Calcium 9.1 8.5-10.1 mg/dL Performing Lab: see note ML - The [facility] MR head/brain wo/w con Reviewed date:08/22/2024 09:51:11 AM Interpretation: Performing Lab: Notes/Report: Source Facility: [facility]-[address] [place] [address] [place] [address] Magnetic Resonance Report Signed Patient: KAHLIL MOSHER MR#: [id number] : 1965 Acct:[id number] Age/Sex: 59 / M ADM Date: 08/19/24 Loc: MRI Attending Dr: Nemesio Angelo M.D. Ordering Physician: Nemesio Angelo M.D. Date of Service: 08/19/24 Procedure(s): MR head/brain wo/w con Accession Number(s): [id number] cc: Nemesio Angelo M.D. The [place] [address] Patient Name: KAHLIL MOSHER MRN: [id number] date: 1965 Sex: M Assigned Patient Location: MRI Current Patient Location: MRI Accession/Order Number: [id number] Exam Date: 08/19/2024 23:33 Report Date: 08/19/2024 23:38 At the request of: NEMESIO ANGELO MD Procedure: MR head/brain wo/w con MRI of the brain with and without IV contrast. Reason for exam: Vertigo for 2 weeks. COMPARISON: CT brain 08/04/2024. TECHNIQUE: Multisequence, multiplanar images of the brain were obtained before and after the use of IV contrast. FINDINGS: No evidence of restricted diffusion is an diffusion-weighted imaging. No evidence of blood products are seen on T2 Star imaging. Cortical atrophy with mild chronic microvascular ischemic changes. Posterior fossa appears grossly unremarkable. Intraorbital contents appear unremarkable. No significant paranasal sinus disease. Midline structures appear unremarkable. Postcontrast imaging demonstrates no abnormal enhancement. MR/MR head/brain wo/w con IMPRESSION: No acute intracranial process. No abnormal enhancement is seen. Cortical atrophy with mild chronic microvascular ischemic changes. Impression dictated by: Sony Sy Jr., D.O.08/19/2024 11:38 PM Dictation Location: [place] [address] Electronically authenticated by: [id number] Y Date: 08/19/2024 23:38 Dictated By: Sony Sy M.D. Signed By: 08/19/24 2341 DD/ 2338 TD/TT: [employer] Certified Network Associate: CBC AUTO DIFF Reviewed date:08/08/2024 08:44:56 AM Interpretation: Performing Lab: Notes/Report: The [facility] , White Blood Count 15.6 4.0-11.0 10 3/uL Red Blood Count 4.78 4.70-6.10 10 6/uL Hemoglobin 14.4 14.0-18.0 g/dL Hematocrit 42.4 42.0-54.0 % Mean Corpuscular Volume 88.7 80.0-94.0 fL Mean Corpuscular Hemoglobin 30.1 25.9-34.0 pg Mean Corpuscular HGB Conc 34.0 29.9-35.2 g/dL Red Cell Distribution Width 12.7 11.0-15.0 % Platelet Count 206 150-450 10 3/uL Mean Platelet Volume 10.9 9.5-13.5 fL Neutrophils Percent Auto 82.1 43.0-75.0 % Lymphocytes Percent Auto 11.2 20.5-60.0 % Monocytes Percent Auto 6.1 1.7-12.0 % Eosinophils Percent Auto 0.0 0.9-7.0 % Basophils Percent Auto 0.1 0.2-2.0 % Immature Granulocytes Pct Auto 0.5 0.0-0.5 % Neutrophils Absolute Auto 12.8 1.4-6.5 10 3/uL Lymphocytes Absolute Auto 1.8 1.2-3.8 10 3/uL Monocytes Absolute Auto 1.0 0.3-0.8 10 3/uL Eosinophils Absolute Auto 0.0 0.0-0.7 10 3/uL Basophils Absolute Auto 0.0 0.0-0.1 10 3/uL Immature Granulocytes Abs Auto 0.08 0.00-0.03 10 3/uL Performing Lab: see note ML - [facility] LB CBC AUTO DIFF Reviewed date:08/05/2024 08:09:37 AM Interpretation: Performing Lab: Notes/Report: [facility] , White Blood Count 12.4 4.0-11.0 10 3/uL Red Blood Count 4.98 4.70-6.10 10 6/uL Hemoglobin 15.3 14.0-18.0 g/dL Hematocrit 43.4 42.0-54.0 % Mean Corpuscular Volume 87.1 80.0-94.0 fL Mean Corpuscular Hemoglobin 30.7 25.9-34.0 pg Mean Corpuscular HGB Conc 35.3 29.9-35.2 g/dL Red Cell Distribution Width 12.5 11.0-15.0 % Platelet Count 238 150-450 10 3/uL Mean Platelet Volume 10.0 9.5-13.5 fL Neutrophils Percent Auto 92.1 43.0-75.0 % Lymphocytes Percent Auto 6.1 20.5-60.0 % Monocytes Percent Auto 1.2 1.7-12.0 % Eosinophils Percent Auto 0.1 0.9-7.0 % Basophils Percent Auto 0.1 0.2-2.0 % Immature Granulocytes Pct Auto 0.4 0.0-0.5 % Neutrophils Absolute Auto 11.4 1.4-6.5 10 3/uL Lymphocytes Absolute Auto 0.8 1.2-3.8 10 3/uL Monocytes Absolute Auto 0.2 0.3-0.8 10 3/uL Eosinophils Absolute Auto 0.0 0.0-0.7 10 3/uL Basophils Absolute Auto 0.0 0.0-0.1 10 3/uL Immature Granulocytes Abs Auto 0.05 0.00-0.03 10 3/uL Performing Lab: see note ML - [facility] LB ECG 12 lead Reviewed date:08/05/2024 08:09:37 AM Interpretation: Performing Lab: Notes/Report: Source Facility: [facility]-[address] [place] [address] Electrocardiograph Report Signed Patient: KAHLIL MOSHER MR#: [id number] : 1965 Acct:[id number] Age/Sex: 59 / M ADM Date: 08/04/24 Loc: MS 231-[address]: Nemesio Angelo M.D. Ordering Physician: Nikolai Martinez Date of Service: 08/04/24 Procedure(s): ECG 12 lead Accession Number(s): [id number] cc: [facility] Test Date: 2024-08-04 Pat Name: KAHLIL MOSHER Department: Room: - Gender: Male [employer]ist: : 1965 Requested By: NEMESIO ANGELO Order Number: [id number] Reading MD: NEMESIO ANGELO Measurements Intervals [place] Rate: 64 P: 52 [place]: 196 QRS: 15 QRSD: 96 T: -2 QT: 424 QTc: 433 Interpretive Statements 1100 Sinus rhythm Non-Specific T wave inversion in III 9110 normal ECG No previous ECG available for comparison Electronically Signed On 08-05-2024 7:01:17 EST by NEMESIO ANGELO Dictated By: Nemesio Angelo M.D. Signed By: 08/05/24 0701 DD/ 1621 TD/TT: [employer] Certified Network Associate: Troponin I High Sensitivity Reviewed date:08/04/2024 06:55:24 PM Interpretation: Performing Lab: Notes/Report: The [facility] , Troponin I High Sensitivity <4.0 4.0-76.1 pg/m L REFERENCE LIMIT (URL) OF TROPONIN, DEFINED THE 99TH WITH OTHER DIAGNOSTIC AND CLINICAL INFORMATION. USED IN ISOLATION BUT SHOULD BE INTERPRETED IN CONJUNCTION UNIVERSAL DEFINITION OF MYOCARDIAL INFARCTION. THE UPPER 99TH PERCENTILE = 76.2 PG/ML HAS BEEN CONFIRMED THE DECISION THRESHOLD FOR MD CUT-OFF POINTS HAVE BEEN ESTABLISHED BASED ON THE FOURTH PERCENTILE OF cTnI DISTRIBUTION IN A REFERENCE POPULATION, DIAGNOSIS. NOTE: HIGH-SENSITIVITY TROPONIN ASSAY IS NOT INTENDED TO BE Performing Lab: see note ML - The [facility] LB Manual Differential Reviewed date:08/04/2024 06:55:24 PM Interpretation: Performing Lab: Notes/Report: The [facility] , Segmented Neutrophils % Manual 91.0 43.0-75.0 Band Neutrophils % 1.0 0-5 % Lymphocytes Percent Manual 7.0 20.5-60.0 % Monocytes Percent Manual 0.0 1.7-12.0 % Eosinophils Percent Manual 0.0 0.9-7.0 % Basophils Percent Manual 0.0 0.2-2.0 % Metamyelocytes % 1.0 Segmented Neut Absolute Manual 7.91 1.4-6.5 10 3/uL Band Neutrophils Absolute 0.1 0.0-0.3 10 3/uL Lymphocytes Absolute Manual 0.60 1.20-3.80 10 3/uL Monocytes Absolute Manual 0.00 0.30-0.80 10 3/ uL Eosinophils Absolute Manual 0.00 0.00-0.70 10 3/uL Basophils Abs Manual 0.00 0.00-0.10 10 3/uL Metamyelocytes Absolute Manual 0.08 Performing Lab: see note ML - The [facility] LB PROF CHEM 8 (BAS METB) Reviewed date:08/04/2024 06:55:24 PM Interpretation: Performing Lab: Notes/Report: The [facility] , Sodium 139 136-145 mmol/L Potassium 4.8 3.5-5.1 mmol/L Chloride 102 98-107 mmol/L Carbon Dioxide 20.3 21.0-32.0 mmol/L Anion Gap 21.5 Glucose 219 74-106 mg/dL Blood Urea Nitrogen 24.0 7.0-18.0 mg/dL Creatinine 1.20 0.70-1.30 mg/dL Estimated GFR ( Neelima >60 >=60 mL/min/1.73m 2 Estimated GFR (Non- Charlene >60 >=60 mL/min/1.73m 2 BUN Creatinine Ratio 20.0 Calcium 9.5 8.5-10.1 mg/dL Performing Lab: see note ML - [facility] CBC AUTO DIFF Reviewed date:08/04/2024 06:55:24 PM Interpretation: Performing Lab: Notes/Report: The [facility] , White Blood Count 8.7 4.0-11.0 10 3/uL Red Blood Count 5.20 4.70-6.10 10 6/uL Hemoglobin 15.9 14.0-18.0 g/dL Hematocrit 45.2 42.0-54.0 % Mean Corpuscular Volume 86.9 80.0-94.0 fL Mean Corpuscular Hemoglobin 30.6 25.9-34.0 pg Mean Corpuscular HGB Conc 35.2 29.9-35.2 g/dL Red Cell Distribution Width 12.3 11.0-15.0 % Platelet Count 196 150-450 10 3/uL Mean Platelet Volume 10.2 9.5-13.5 fL Performing Lab: see note - [facility] PROF CHEM 8 (BAS METB) Reviewed date:08/08/2024 08:44:56 AM Interpretation: Performing Lab: Notes/Report: The [facility] , Sodium 141 136-145 mmol/L Potassium 4.0 3.5-5.1 mmol/L Chloride 106 98-107 mmol/L Carbon Dioxide 26.7 21.0-32.0 mmol/L Anion Gap 12.3 Glucose 126 74-106 mg/dL Blood Urea Nitrogen 22.0 7.0-18.0 mg/dL Creatinine 1.13 0.70-1.30 mg/dL Estimated GFR ( Neelima >60 >=60 mL/min/1.73m 2 Estimated GFR (Non- Charlene >60 >=60 mL/min/1.73m 2 BUN Creatinine Ratio 19.5 Calcium 8.8 8.5-10.1 mg/dL Performing Lab: see note ML - [facility] Reason For Referral Diagnosis 1 Vertigo (R42) Referral Organization [facility] ([place], [place]) Medicine Referring Provider First Name Regulo Referring Provider Last Name Petey Referring Provider Speciality [facility] rehan Referred Provider [facility] Referred Provider Specialty Neurology Referral Priority Routine Medications Medication SIG (Take, Route, Frequency, Duration) Notes Start Date End Date Status OneTouch Verio - USE 1 STRIP DX: E11. 9 ONCE DAILY In Vitro; Duration: 90 days Active Ozempic (0.25 or 0.5 MG/DOSE) 2 MG/3ML INJECT 0.5MG UNDER THE SKIN SUBCUTANEOUS ONCE A WEEK 30 DAYS; Duration: 28 Active metFORMIN HCl 500 MG TAKE 1 TABLET BY [facility] TWICE A DAY WITH MEALS; Duration: 90 Active Meloxicam 15 MG 1 tablet Orally Once a day; Duration: 30 days 11/12/2024 Active Lancets - daily; Duration: 90 days Active Meclizine HCl 25 MG 1 tablet as needed Orally Q 6 hours 08/04/2024 Not-Taking Ozempic (1 MG/DOSE) 4 MG/3ML 1 mg Subcutaneous wekkly 11/12/2024 Active Glucometer - Use to test blood dykes gar daily Dx: E11.9 10/15/2023 Active Social History Tobacco Use: Social History Observation Description Date Details (start date - stop date) Never Smoker NA - NA Tobacco Use/Smoking Question Answer Notes Patient is a nonsmoker Alcohol Screen (Audit-C) Question Answer Notes Did you have a drink containing alcohol in the p ast year? No Points 0 Interpretation Negative AUDIT-C (Standard) Question Answer Notes Did you have a drink contain ing alcohol in the past year? Yes How often did you have six o r more drinks on one occasion in the past year? Never (0 point) How many drinks did you have on a typical day when you were drinking in the past year? 1 or 2 drinks (0 point) How often did you have a dri nk containing alcohol in the past year? 2 to 4 times a month (2 points) Points 2 Interpretation Negative Problems Problem Type SNOMED Code ICD Code Onset Dates Problem Status W/U Status Risk Notes Problem Erectile dysfunction (disorder) (787366800) Male erectile dysfunction, unspecified (N52.9) Active confirmed Problem Hyperlipidemia (70839977) Hyperlipidemia (E78.5) Active confirmed Problem Hypertension (62779659) Hypertension (I10) Active confirmed Problem Vertigo (196644378) Vertigo (R42) Active confirmed Problem Obstructive sleep apnea syndrome (52507936) BONIFACIO (obstructive sleep apnea) (G47.33) Active confirmed Problem Osteoarthritis of knee (481830282) Knee osteoarthritis (M17.9) Active confirmed Problem Gastritis (6927826) Gastritis (K29.70) Active confirmed Problem Hemorrhoids (19464979) Hemorrhoids (K64.9) Active confirmed Problem Hemorrhoid (93933668) Hemorrhoid (K64.9) Active confirmed Problem Type II diabetes mellitus without complication (965010987) Controlled type 2 diabetes mellitus (E11.9) Active confirmed Problem Diabetes mellitus (20142559) Diabetes mellitus (E11.9) Active confirmed Vital Signs Blood pressure diastolic 88 mm Hg 11/12/2024 Height 71 in 11/12/2024 Blood pressure systolic 140 mm Hg 11/12/2024 Weight 263.2 lbs 11/12/2024 BMI 36.7 kg/m2 11/12/2024 Encounters Encounter Location Date Provider Diagnosis [facility] [address] [place] [address] 08/04/2024 Regulo Hoy Acute non-recurrent sinusitis, unspecified location J01.90 and Nasal congestion R09.81 [facility] [address] [place] [address] 08/09/2024 Regulo Hoy Vertigo R42 [facility] [address] [place] [address] 11/12/2024 Regulo Hoy Osteoarthritis of ri ght knee M17.11 [facility] [address] [place] [address] 08/04/2024 Regulo Hoy [facility] [address] [place] [address] 08/05/2024 Regulo Hoy [facility] [address] [place] [address] 08/09/2024 Regulo Hoy Vertigo R42 [facility] [address] [place] [address] 08/22/2024 Regulo Hoy [facility] [address] [place] [address] 12/15/2024 Regulo Angelo Wellness examination Z01.89 ; Hyperlipidemia E78.5 ; Diabetes mellitus E11.9 ; Hypertension I10 ; Fatigue R53.83 ; Screening for colon cancer Z12.11 and Screening for prostate cancer Z12.5 Assessments Encounter Date Diagnosis (ICD Code) Assessment Notes Treatment Notes Treatment Clinical Notes Section Notes 08/09/2024 Vertigo (ICD-10 - R42) 11/12/2024 Osteoarthritis of right knee (ICD-10 - M17.11) 08/09/2024 Vertigo (ICD-10 - R42) 12/15/2024 Wellness examination (ICD-10 - Z01.89) 12/15/2024 Hyperlipidemia (ICD-10 - E78.5) 08/04/2024 Acute non-recurrent sinusitis, unspecified location (ICD-10 - J01.90) Rest and drink more liquids, especially water. You may use a humidifier or vaporizer to help keep the drainage moist. Qcjo-pyn-oezmjzm Nasal Saline may help the stuffy and runny nose. Use Ibuprofen and or Tylenol as needed for fever, chills, body aches or pain. Children 5 years old should not be given ozuq-exk-kpgthgc cough and cold medications such as guaifenesin and dextromethorphan. If you're over age 5, you may try eqwz-sol-wxmqrty cold medications such as guaifenesin and dextromethorphan, or multi-symptom cold reliever such as Dayquil to help reduce the symptoms. Antibiotics have been prescribed. You should take these until completed and follow the directions. Antibiotics can sometimes cause upset stomach, and in rare cases, serious allergic reactions or serious gastrointestinal problems. If you start having severe abdominal pain, severe vomiting, or bloody diarrhea, you should be reevaluated by your physician or urgent care immediately. Follow up with your Primary Care Provider or return to clinic if symptoms do not improve within 3-5 days 08/04/2024 Nasal congestion (ICD-10 - R09.81) 12/15/2024 Diabetes mellitus (ICD-10 - E11.9) 12/15/2024 Hypertension (ICD-10 - I10) 12/15/2024 Fatigue (ICD-10 - R53.83) 12/15/2024 Screening for colon cancer (ICD-10 - Z12.11) 12/15/2024 Screening for prostate cancer (ICD-10 - Z12.5) Plan Of Treatment Pending Test Test Name Order Date XR Chest PA and Lateral (Routine CXR) * 06/11/2023 EKG w Interp & Report - performed 2022 FECAL OCCULT BLOOD 12/15/2024 CMP - Comprehensive Metabolic Panel 07/2024 Cardiolyte Stress Test 06/11/2023 BNP 06/11/2023 CBC AUTO DIFF 06/11/2023 CBC AUTO DIFF 12/15/2024 GLYCOHEMOGLOBIN A1C 12/15/2024 LIPID PROFILE 12/15/2024 OCC BLD IMMUNO SCREEN 11/04/2023 PROF 14(COMP METB) 06/11/2023 MRI BRAIN WO W CON 08/09/2024 THYROID PANEL (T4/TSH/FREE T3) 4 THYROID PANEL (T4/TSH/FREE T3) 5 PSA, SCREENING 12/15/2024 PSA, SCREENING 11/04/2023 Insurance Providers Payer Name Payer Address Payer Phone Subscriber Number Group Number Insured Name Patient Relationship to Insured Coverage Start Date Coverage End Date R [address] [address] [place] [address] [id number] Kahlil Mosher Self - patient is the insured Medications Administered Medication Instructions Date of Administration Dosage Notes Dexamethasone, 4mg/mL 08/04/2024 8 mg Medical (General) History Medical History History ICD Code Male erectile dysfunction, unspecified N 52.9 Hemorrhoids K64.9 BONIFACIO (obstructive sleep apnea) G47.33 Controlled type 2 diabetes mellitus E11. 9 Migraine G43.909 Hypertension I10 Surgical History Surgery Date(Month/Year) Vasectomy left knee scope
--- OUTSIDE RECORDS SUMMARY | 2025-03-16 08:51 | XMS_ITS | Clinical Summary ---
Author Organization [facility] Healthcare Address [address] [place] [address] Care Team Providers Care Communications Systems Engineer Name Role Phone Nemesio Angelo MD Primary Care Provider [phone] Allergies No known active allergies Medications metFORMIN (Glucophage) 500 MG tablet Take 500 mg by mouth in the morning and 500 mg in the evening. Take with meals. Active Active Problems Problem Noted Date Diagnosed Date Cervicalgia 09/24/2024 Right-sided vestibular weakness 09/23/2024 Balance disorder 09/23/2024 Social History Tobacco Use Types Packs/Day Years Used Date Smoking Tobacco: Never Assessed Sex and Gender Information Value Date Recorded Sex Assigned at Male 09/22/2024 9:36 AM EDT Legal Sex Male 6:54 PM EDT Gender Identity Male 09/22/2024 9:36 AM EDT Sexual Orientation Not on file Last Filed Vital Signs Vital Sign Reading Time Taken Comments Blood Pressure 138/88 09/23/2024 8:58 AM EDT Pulse 71 09/23/2024 8:58 AM EDT Temperature - - Respiratory Rate - - Oxygen Saturation 97% 09/23/2024 8:58 AM EDT Inhaled Oxygen Concentration - - Weight 123 kg (272 lb) 09/23/2024 8:58 AM EDT Height - - Body Mass Index - - Plan of Treatment Health Maintenance Due Date Last Done Comments CT Colonography 1965 Colonoscopy 1965 Colorectal Cancer Screening 1965 FIT-DNA 1965 FIT 1965 FOBT 1965 Sigmoidoscopy 1965 Influenza Vaccine (#1) 2025 5, 05/15/2022, 04/20/2021, Additional history exists Insurance [facility] [address] [facility] Care Teams Communications Systems Engineer Relationship Specialty Start Date End Date Nemesio Angelo MD PCP - General Family Medicine 09/04/23
--- OUTSIDE RECORDS SUMMARY | 2025-03-16 08:51 | XMS_ITS | Patient Health Record ---
Author Organization [facility] Address [address] [place] [address] Care Team Providers Care De Alcholizer Name Role Phone Nemesio Angelo Primary Care Provider Toni Santizo [facility] [phone] Reason For Referral No Information Plan Of Treatment Next Appt Details Provider Name:Toni goss, 03/22/2025 09:00:00 AM, [address] [facility] , [place] [address], [place], [address], Insurance Providers Payer Name Payer Address Payer Phone Subscriber Number Group Number Insured Name Patient Relationship to Insured Coverage Start Date Coverage End Date [facility] [address] [address] [place] [address] [id number] KAHLIL CAMPA Self - patient is the insured 5
== END 2025-03-16 08:48 | disposition home or self-care (01) ==
LOC: SLEEP 08:47
PROVIDERS: PCP Family Medicine; Visit Provider Psychiatry & Neurology Neurology
DX: G47.33 Obstructive sleep apnea (adult) (pediatric) (principal)